=== PATIENT | female | born 1940 | race Caucasian/White ===

== ENCOUNTER → 2018-06-25 | Outpatient (CLI) | payer MEDICARE ==
[~2018-06-25] MED LIST: ALBUTEROL SULFATE 0.083% 2.5 MG/3 ML INH IH ONE
== END | disposition home or self-care (01) ==
LOC: RESP 08:29
PROVIDERS: ATTEND Internal Medicine
DX: J44.9 Chronic obstructive pulmonary disease, unspecified (principal); R06.00 Dyspnea, unspecified; M47.894 Other spondylosis, thoracic region
CPT/HCPCS: 71046; 94060; 94727; 94729

== ENCOUNTER 2023-01-01 23:58 | Observation (INO) | payer MEDICARE, OTHER ==
[~2023-01-01] VITALS: Ht 165.1 cm; Wt 53.5 kg
[~2023-01-01 23:58] MED LIST changes: +ALBU0.63 IH; +ALBU8.5H8 IH; -ALBUTEROL SULFATE 0.083% 2.5 MG/3 ML INH IH ONE; +AMLO-257 PO; +BUDE10.2 IH; +HYDR25TA PO; +LACT10SO5 PO; +METO50TA18 PO
[2023-01-02] VITALS: BP 118/56
[2023-01-02] MEDS ORDERED: ASPIRIN 81MG CHEW TAB PO ONE
[2023-01-02] MEDS ORDERED: IPRATROPIUM/ALBUTEROL SULFATE 3 ML SOLUTION IH ONE ×2 (00:30)
[2023-01-02] MEDS ORDERED: ACETAMINOPHEN 500 MG TABLET PO ONE (00:30)
[2023-01-02] MEDS ORDERED: SOLU-MEDROL 125MG VIAL IVP ONE (00:30)
[2023-01-02 00:41] LABS: BASOPHILS % (AUTO) 0.2 % (0.0-5.0); EOSINOPHILS % (AUTO) 0.7 % (0.0-8.0); HEMATOCRIT 41.9 % (36-48); LYMPHOCYTES % (AUTO) 4.4 % (21.0-51.0); MEAN CORPUSCULAR HEMOGLOBIN 30.7 pg (27.0-33.0); MEAN CORPUSCULAR HGB CONC 33.7 g/dL (32.0-36.0); MEAN CORPUSCULAR VOLUME 91.1 fL (79-99); MONOCYTES % (AUTO) 5.4 % (3.0-13.0); NEUTROPHILS % (AUTO) 88.9 % (40.0-77.0); PLATELET COUNT (AUTO) 324 K/uL (130-400); RED CELL DISTRIBUTION WIDTH 12.9 % (11.0-15.5); WHITE BLOOD COUNT (AUTO) 23.5 K/uL (4.8-10.8)
[2023-01-02 00:49] LABS: CREATININE 0.7 mg/dL (0.5-1.5); POTASSIUM 4.8 mmol/L (3.5-5.1)
[2023-01-02 00:54] LABS: ALBUMIN 3.7 g/dL (3.5-5.0); TOTAL PROTEIN, SERUM 7.8 g/dL (6.0-8.3)
[2023-01-02] MEDS ORDERED: PRED50TA2 PO (01:38)
[2023-01-02] MEDS ORDERED: LEVO750T68 PO (01:38)
[2023-01-02] MEDS ORDERED: LEVOFLOXACIN 750 MG TABLET PO ONE (02:00)
[2023-01-02] MEDS: SOLU-MEDROL 40MG VIAL IVP SCH ×3 (02:45→20:44)
[2023-01-02] MEDS ORDERED: ACETAMINOPHEN 325 MG TAB PO PRN ×2 (03:00→08:30)
[2023-01-02] MEDS ORDERED: ONDANSETRON 4MG INJ IVP PRN (03:00)
[2023-01-02] MEDS ORDERED: IPRATROPIUM/ALBUTEROL SULFATE 3 ML SOLUTION IH SCH (06:00)
[2023-01-02] MEDS ORDERED: MILK500C PO (07:49)
[2023-01-02] MEDS ORDERED: ALBU6.7H14 IH (07:49)
[2023-01-02] MEDS ORDERED: LEVO25TA54 PO (07:49)
[2023-01-02] MEDS ORDERED: AMLO-257 PO (07:49)
[2023-01-02] MEDS ORDERED: IPRA3AMP24 IH (07:49)
[2023-01-02] MEDS ORDERED: DIPHENHYDRAMINE HCL 25 MG CAPSULE PO PRN (08:30)
[2023-01-02] MEDS ORDERED: MAG/ALUM/SIMETH 30 ML UDCUP PO PRN (08:30)
[2023-01-02] MEDS ORDERED: LACTULOSE 20 GM/30 ML UDCUP PO PRN (08:30)
[2023-01-02] MEDS ORDERED: ALBUTEROL 0.083% 2.5 MG/3 ML INH IH PRN (08:30)
[2023-01-02] MEDS ORDERED: GUAIFENESIN-DM 200/20 MG 10 ML PO PRN (08:30)
[2023-01-02] MEDS: 0.9%NACL 1000ML 1,000 ML IV SCH (09:07)
[2023-01-02] MEDS: LEVOTHYROXINE 25 MCG TABLET PO SCH (09:07)
[2023-01-02] MEDS: ENOXAPARIN SODIUM 30 MG/0.3 ML SQ SCH (09:07)
[2023-01-02] MEDS: AZITHROMYCIN 250 MG TABLET PO SCH (09:07)
[2023-01-02] MEDS: IPRATROPIUM/ALBUTEROL SULFATE 3 ML SOLUTION IH SCH ×3 (09:48→18:29)
[2023-01-02] MEDS ORDERED: HYDROCODONE/ACETAMINOPHEN 5/325 MG TAB PO PRN (15:00)
[2023-01-02] MEDS ORDERED: PANTOPRAZOLE 40 MG TAB DR PO SCH (16:00)
[2023-01-02] MEDS: METOCLOPRAMIDE 5 MG TABLET PO SCH ×2 (16:51→20:44)
[2023-01-02] MEDS ORDERED: HYDR-4060 PO (20:10)
[2023-01-02 22:05] VITALS: BP 112/54
[2023-01-03] MEDS: 0.9%NACL 1000ML 1,000 ML IV SCH (00:29)
[2023-01-03] MEDS: SOLU-MEDROL 40MG VIAL IVP SCH (03:50)
[2023-01-03 04:00] VITALS: BP 157/73
[2023-01-03] MEDS: LEVOTHYROXINE 25 MCG TABLET PO SCH (06:25)
[2023-01-03] MEDS: METOCLOPRAMIDE 5 MG TABLET PO SCH ×3 (06:25→16:55)
[2023-01-03] MEDS: IPRATROPIUM/ALBUTEROL SULFATE 3 ML SOLUTION IH SCH ×3 (06:27→18:29)
[2023-01-03 07:27] VITALS: BP 126/45
[2023-01-03] MEDS ORDERED: PANT40TA54 PO (08:38)
[2023-01-03] MEDS ORDERED: AZIT500T PO (08:38)
[2023-01-03] MEDS ORDERED: PRED10TA3 PO (08:38)
[2023-01-03] MEDS ORDERED: DILTIAZEM 120MG SR CAP PO SCH (09:00)
[2023-01-03] MEDS ORDERED: PANTOPRAZOLE 40 MG TAB DR PO SCH (09:00)
[2023-01-03] MEDS ORDERED: PREDNISONE 10 MG TABLET PO SCH (09:00)
[2023-01-03] MEDS: AZITHROMYCIN 250 MG TABLET PO SCH (09:44)
[2023-01-03] MEDS: ENOXAPARIN SODIUM 30 MG/0.3 ML SQ SCH (09:46)
[2023-01-03 11:44] VITALS: BP 113/56
[2023-01-03] MEDS ORDERED: DILT120C78 PO (13:11)
[2023-01-03] MEDS ORDERED: OXYGEN NASAL (13:15)
[2023-01-03 16:01] VITALS: BP 118/56
== END 2023-01-03 20:38 | disposition home or self-care (01) ==
LOC: EDH 23:58 → EDHIP 01-02 02:15 → 4AH 01-02 22:05
PROVIDERS: ADMIT Internal Medicine; ATTEND Internal Medicine
DX: J44.1 Chronic obstructive pulmonary disease with (acute) exacerbation (principal); Z20.822 Contact with and (suspected) exposure to COVID-19; J96.01 Acute respiratory failure with hypoxia; I12.9 Hypertensive chronic kidney disease with stage 1 through stage 4 chronic kidney disease, or unspecified chronic kidney disease; N18.2 Chronic kidney disease, stage 2 (mild); E03.9 Hypothyroidism, unspecified; E88.81 Metabolic syndrome and other insulin resistance; I25.10 Atherosclerotic heart disease of native coronary artery without angina pectoris; J20.9 Acute bronchitis, unspecified; K31.84 Gastroparesis; M47.816 Spondylosis without myelopathy or radiculopathy, lumbar region; M81.0 Age-related osteoporosis without current pathological fracture; T40.2X5A Adverse effect of other opioids, initial encounter; Z79.51 Long term (current) use of inhaled steroids; Z79.899 Other long term (current) drug therapy; Z85.3 Personal history of malignant neoplasm of breast; Z85.828 Personal history of other malignant neoplasm of skin; Z87.891 Personal history of nicotine dependence; Z90.12 Acquired absence of left breast and nipple; Z90.710 Acquired absence of both cervix and uterus; Z96.641 Presence of right artificial hip joint; Z98.890 Other specified postprocedural states
CPT/HCPCS: 94640 ×8; 94760 ×2; 96374; 96376 ×2; 96372 ×2; 96361 ×2; 99285; 84484; 80053; 85025; 87040 ×2; 87804 ×2; 83605; 36415; 87635; 71045; 93005; G0378 ×35; C9803; J7030; J2930 ×2; J1650 ×2; J2920 ×4; J7512; 94664

== ENCOUNTER → 2023-10-17 | Outpatient (CLI) | payer MEDICARE, OTHER ==
[~2023-10-17] MED LIST changes: -ALBU0.63 IH; +ALBU6.7H14 IH; -ALBU8.5H8 IH; -AMLO-257 PO; +DILT180C89 PO; +DILT30 PO; +FURO40TA7 PO; -HYDR25TA PO; +IPRA3AMP24 IH; -LACT10SO5 PO; +LEVO-70 PO; +LEVO25TA54 PO; +LIDOCAINE HCL 4% LTA SOL 4 ML VIAL TP ONE; +LINE600T11 PO; -METO50TA18 PO; +PANT40GR PO; +POTA-202 PO; +PRED10TA3 PO; +ROSU5TAB12 PO
== END | disposition home or self-care (01) ==
LOC: WHH 08:22
PROVIDERS: ATTEND Nurse Practitioner Family
DX: T81.89XA Other complications of procedures, not elsewhere classified, initial encounter (principal); S81.801A Unspecified open wound, right lower leg, initial encounter; I13.0 Hypertensive heart and chronic kidney disease with heart failure and stage 1 through stage 4 chronic kidney disease, or unspecified chronic kidney disease; N18.9 Chronic kidney disease, unspecified; I50.9 Heart failure, unspecified; J44.9 Chronic obstructive pulmonary disease, unspecified; E78.5 Hyperlipidemia, unspecified; E03.9 Hypothyroidism, unspecified; I25.10 Atherosclerotic heart disease of native coronary artery without angina pectoris; M81.0 Age-related osteoporosis without current pathological fracture; M47.816 Spondylosis without myelopathy or radiculopathy, lumbar region; Z85.3 Personal history of malignant neoplasm of breast; Z87.891 Personal history of nicotine dependence; W22.8XXA Striking against or struck by other objects, initial encounter; Y93.89 Activity, other specified; Y99.8 Other external cause status; Y92.89 Other specified places as the place of occurrence of the external cause; Y83.8 Other surgical procedures as the cause of abnormal reaction of the patient, or of later complication, without mention of misadventure at the time of the procedure
CPT/HCPCS: 11042; A6250; A6196; A4450; A6260

== ENCOUNTER → 2023-10-31 | Outpatient (CLI) | payer MEDICARE, OTHER | END | disposition home or self-care (01) | LOC: WHH 08:08 | PROVIDERS: ATTEND Nurse Practitioner Family | DX: T81.89XD Other complications of procedures, not elsewhere classified, subsequent encounter (principal); S81.801D Unspecified open wound, right lower leg, subsequent encounter; I13.0 Hypertensive heart and chronic kidney disease with heart failure and stage 1 through stage 4 chronic kidney disease, or unspecified chronic kidney disease; N18.9 Chronic kidney disease, unspecified; I50.9 Heart failure, unspecified; J44.9 Chronic obstructive pulmonary disease, unspecified; E78.5 Hyperlipidemia, unspecified; E03.9 Hypothyroidism, unspecified; I25.10 Atherosclerotic heart disease of native coronary artery without angina pectoris; M81.0 Age-related osteoporosis without current pathological fracture; M47.816 Spondylosis without myelopathy or radiculopathy, lumbar region; Z85.3 Personal history of malignant neoplasm of breast; Z87.891 Personal history of nicotine dependence; Z79.899 Other long term (current) drug therapy; W22.8XXD Striking against or struck by other objects, subsequent encounter; Y83.8 Other surgical procedures as the cause of abnormal reaction of the patient, or of later complication, without mention of misadventure at the time of the procedure | CPT/HCPCS: 11042; A6197 ==

== ENCOUNTER → 2023-11-14 | Outpatient (CLI) | payer MEDICARE, OTHER | END | disposition home or self-care (01) | LOC: WHH 08:17 | PROVIDERS: ATTEND Nurse Practitioner Family | DX: T81.89XD Other complications of procedures, not elsewhere classified, subsequent encounter (principal); S81.801D Unspecified open wound, right lower leg, subsequent encounter; I13.0 Hypertensive heart and chronic kidney disease with heart failure and stage 1 through stage 4 chronic kidney disease, or unspecified chronic kidney disease; N18.9 Chronic kidney disease, unspecified; I50.32 Chronic diastolic (congestive) heart failure; J44.9 Chronic obstructive pulmonary disease, unspecified; E78.5 Hyperlipidemia, unspecified; E03.9 Hypothyroidism, unspecified; I25.10 Atherosclerotic heart disease of native coronary artery without angina pectoris; M81.0 Age-related osteoporosis without current pathological fracture; M47.816 Spondylosis without myelopathy or radiculopathy, lumbar region; Z85.3 Personal history of malignant neoplasm of breast; Z87.891 Personal history of nicotine dependence; Z79.899 Other long term (current) drug therapy; W22.8XXD Striking against or struck by other objects, subsequent encounter; Y83.8 Other surgical procedures as the cause of abnormal reaction of the patient, or of later complication, without mention of misadventure at the time of the procedure | CPT/HCPCS: 11042; A6250; A6209; A6197; A4450 ==

== ENCOUNTER → 2023-11-28 | Outpatient (CLI) | payer MEDICARE, OTHER | END | disposition home or self-care (01) | LOC: WHH 07:59 | PROVIDERS: ATTEND Nurse Practitioner Family | DX: T81.89XD Other complications of procedures, not elsewhere classified, subsequent encounter (principal); S81.801D Unspecified open wound, right lower leg, subsequent encounter; I13.0 Hypertensive heart and chronic kidney disease with heart failure and stage 1 through stage 4 chronic kidney disease, or unspecified chronic kidney disease; N18.9 Chronic kidney disease, unspecified; I50.32 Chronic diastolic (congestive) heart failure; J44.9 Chronic obstructive pulmonary disease, unspecified; E78.5 Hyperlipidemia, unspecified; E03.9 Hypothyroidism, unspecified; I25.10 Atherosclerotic heart disease of native coronary artery without angina pectoris; M81.0 Age-related osteoporosis without current pathological fracture; M47.816 Spondylosis without myelopathy or radiculopathy, lumbar region; Z85.3 Personal history of malignant neoplasm of breast; Z87.891 Personal history of nicotine dependence; Z79.899 Other long term (current) drug therapy; W22.8XXD Striking against or struck by other objects, subsequent encounter; Y83.8 Other surgical procedures as the cause of abnormal reaction of the patient, or of later complication, without mention of misadventure at the time of the procedure | CPT/HCPCS: G0463; A6250; A6196 ==

== ENCOUNTER → 2023-12-12 | Outpatient (CLI) | payer MEDICARE, OTHER ==
[~2023-12-12] MED LIST changes: -LIDOCAINE HCL 4% LTA SOL 4 ML VIAL TP ONE
== END | disposition home or self-care (01) ==
LOC: WHH 08:20
PROVIDERS: ATTEND Nurse Practitioner Family
DX: T81.89XD Other complications of procedures, not elsewhere classified, subsequent encounter (principal); S81.801D Unspecified open wound, right lower leg, subsequent encounter; L97.812 Non-pressure chronic ulcer of other part of right lower leg with fat layer exposed; I13.0 Hypertensive heart and chronic kidney disease with heart failure and stage 1 through stage 4 chronic kidney disease, or unspecified chronic kidney disease; N18.9 Chronic kidney disease, unspecified; I50.32 Chronic diastolic (congestive) heart failure; J44.9 Chronic obstructive pulmonary disease, unspecified; E78.5 Hyperlipidemia, unspecified; E03.9 Hypothyroidism, unspecified; I25.10 Atherosclerotic heart disease of native coronary artery without angina pectoris; M81.0 Age-related osteoporosis without current pathological fracture; M47.816 Spondylosis without myelopathy or radiculopathy, lumbar region; Z85.3 Personal history of malignant neoplasm of breast; Z87.891 Personal history of nicotine dependence; Z79.899 Other long term (current) drug therapy; W22.8XXD Striking against or struck by other objects, subsequent encounter; Y83.8 Other surgical procedures as the cause of abnormal reaction of the patient, or of later complication, without mention of misadventure at the time of the procedure
CPT/HCPCS: G0463

== ENCOUNTER → 2023-12-26 | Outpatient (CLI) | payer MEDICARE, OTHER | END | disposition home or self-care (01) | LOC: WHH 08:13 | PROVIDERS: ATTEND Nurse Practitioner Family | DX: T81.89XD Other complications of procedures, not elsewhere classified, subsequent encounter (principal); S81.801D Unspecified open wound, right lower leg, subsequent encounter; L97.812 Non-pressure chronic ulcer of other part of right lower leg with fat layer exposed; I13.0 Hypertensive heart and chronic kidney disease with heart failure and stage 1 through stage 4 chronic kidney disease, or unspecified chronic kidney disease; N18.9 Chronic kidney disease, unspecified; I50.32 Chronic diastolic (congestive) heart failure; J44.9 Chronic obstructive pulmonary disease, unspecified; E78.5 Hyperlipidemia, unspecified; E03.9 Hypothyroidism, unspecified; I25.10 Atherosclerotic heart disease of native coronary artery without angina pectoris; M81.0 Age-related osteoporosis without current pathological fracture; M47.816 Spondylosis without myelopathy or radiculopathy, lumbar region; Z85.3 Personal history of malignant neoplasm of breast; Z87.891 Personal history of nicotine dependence; Z79.899 Other long term (current) drug therapy; W22.8XXD Striking against or struck by other objects, subsequent encounter; Y83.8 Other surgical procedures as the cause of abnormal reaction of the patient, or of later complication, without mention of misadventure at the time of the procedure | CPT/HCPCS: G0463; A6250 ==

== ENCOUNTER 2024-03-28 16:28 | Emergency (ER) | payer MEDICARE, OTHER ==
[~2024-03-28] VITALS: Ht 162.6 cm; Wt 47.6 kg
[~2024-03-28 16:28] MED LIST changes: -ROSU5TAB12 PO; +ROSU5TAB43 PO
[2024-03-28 16:41] VITALS: BP 167/53; PULSE 70; RESP 17; O2SAT 96
== END 2024-03-28 18:49 | disposition admitted as inpatient to this hospital (09) ==
LOC: EDH 16:28
DX: S50.01XA Contusion of right elbow, initial encounter (principal); S50.11XA Contusion of right forearm, initial encounter; S80.01XA Contusion of right knee, initial encounter; S00.83XA Contusion of other part of head, initial encounter; I11.0 Hypertensive heart disease with heart failure; I50.9 Heart failure, unspecified; Z79.899 Other long term (current) drug therapy; Z90.710 Acquired absence of both cervix and uterus; Z90.89 Acquired absence of other organs; Z98.890 Other specified postprocedural states; W18.39XA Other fall on same level, initial encounter; Y93.89 Activity, other specified; Y92.89 Other specified places as the place of occurrence of the external cause; Y99.8 Other external cause status
CPT/HCPCS: 70450; 72125; 73080; 73090; 73130; 73562

== ENCOUNTER 2025-05-15 06:08 | Inpatient (IN) | payer MEDICARE, OTHER ==
[2025-05-15] VITALS (9 sets, daily range): BP systolic 105–152; BP diastolic 55–85; PULSE 92–131; RESP 16–24; TEMP 97.7–98; O2SAT 98
[~2025-05-15] VITALS: Ht 162.6 cm; Wt 47.2 kg
[~2025-05-15 06:08] MED LIST changes: -ROSU5TAB43 PO; +ROSU5TAB51 PO
--- NOTE | 2025-05-15 07:17 | ERN ---
General Chief Complaint: Constipation Stated Complaint: CONSTIPATION X 1 WEEK Time Seen by MD: 06:14 Source: patient History of Present Illness Initial Comments Patient is a an 85-year-old female coming in complaining of abdominal distention. Per patient this has been ongoing for a couple of days. She states he does have no history of abdominal surgery. Only other symptom is a dehydration states that she feels very thirsty no fever no chills. Allergies: Coded Allergies: No Known Drug Allergies (Unverified Allergy, Unknown, 08/19/18) Home Meds Active Scripts Linezolid (Zyvox) 600 Mg Tablet, 600 MG PO BID, #20 TAB 1 Refill Prov:ANASTACIO RAMIREZ MD 09/29/23 Levofloxacin (Levofloxacin) 500 Mg Tablet, 500 MG PO DAILY, #10 TAB Prov:ANASTACIO RAMIREZ MD 09/29/23 Prednisone (Prednisone) 10 Mg Tablet, 40 MG PO DAILYBKFST, #50 TAB 0 Refills 4 TABS DAILY X 5 DAYS 3 TABS DAILY X 5 DAYS 2 TABS DALIY X 5 DAYS 1 TAB DAILY X 5 DAYS THEN STOP TAKE WITH FOOD IN AM Prov:ANASTACIO RAMIREZ MD 09/29/23 Pantoprazole Sodium (Pantoprazole Sodium) 40 Mg Granpkt.dr, 40 MG PO BID, #60 PACK 1 Refill Prov:ANASTACIO RAMIREZ MD 09/29/23 Potassium Chloride (Potassium Chloride) 20 Meq Tab.er.prt, 20 MEQ PO BID, #60 TAB 1 Refill Prov:ANASTACIO RAMIREZ MD 09/29/23 Furosemide (Lasix 40Mg Tab) 40 Mg Tablet, 40 MG PO BID, #60 TAB 1 Refill Prov:ANASTACIO RAMIREZ MD 09/29/23 Diltiazem HCl (Diltiazem HCl 30 mg Tab) 30 Mg Tab, 30 MG PO DAILYLUNCH, #90 TAB Prov:ANASTACIO RAMIREZ MD 09/24/23 Diltiazem HCl (Diltiazem 24Hr ER) 180 Mg Cap.er.24h, 180 MG PO BID, #[address]SU[address] Prov:ANASTACIO RAMIREZ MD 09/24/23 Rosuvastatin Calcium (Rosuvastatin Calcium) 5 Mg Tablet, 5 MG PO HS, #90 TAB Prov:ANASTACIO RAMIREZ MD 09/24/23 Ipratropium/Albuterol Sulfate (Iprat-Albut 0.5-3(2.5) mg/3 ml) 3 Ml Ampul.neb, 3 ML IH [id number], #90 DAYS Prov:ANASTACIO RAMIREZ MD 01/02/23 Levothyroxine Sodium (Levothyroxine Sodium) 25 Mcg Tablet, 25 MCG PO DAILY, #90 TAB Prov:ANASTACIO RAMIREZ MD 01/02/23 Albuterol Sulfate (Proventil Hfa) 6.7 Gm Hfa.aer.ad, 2 PUFF IH Q4PRN PRN for SHORTNESS OF BREATH/WHEEZING, #7 INHALER Prov:ANASTACIO RAMIREZ MD 01/02/23 Reported Medications Budesonide/Formoterol Fumarate (Symbicort 160-4.5 Mcg Inhaler) 10.2 Gm Hfa.aer.ad, 2 PUFF IH BID 08/19/18 Past Medical History Past Medical History: CHF, COPD, Hypertension Medical History Other: "LUNG DAMAGE" FORMER SMOKER. Past Surgical History: Hysterectomy, Tonsillectomy, Other Surgical History Other: L MASTECTOMY, R LUMPECTOMY Social History Social History: Negative Female( History) History: Not Applicable ROS Dictation CONSTITUTIONAL: No chills, no fever, no weakness, no diaphoresis, no malaise. HEAD/FACE: No signs of trauma. EENT: No eye pain, no blurred vision, no tearing, no double vision, no ear pain, no ear discharge, no nose pain, no nasal congestion, no throat pain, no throat swelling, no mouth pain. RESPIRATORY: No cough, no orthopnea, no SOB, no stridor, no wheezing. CARDIOVASCULAR: No chest pain, no edema, no palpitations, no syncope. GASTROINTESTINAL/ABDOMINAL: abdominal pain, constipation, no diarrhea, nausea, vomiting. GENITOURINARY: No abnormal discharge, no dysuria, no frequent urination, no hematuria. No complaints of pain in the genitals. MUSCULOSKELETAL: No back pain, no gout, no joint pain, no joint swelling, no muscle pain, no muscle stiffness, no neck pain. INTEGUMENTARY: No change in color, no change in hair/nails, no dryness, no lesion, no lumps, no rash. NEUROLOGICAL/PSYCH: No anxiety, not depressed, no emotional problem, no headache, no numbness, no pre-existing deficit, no history of seizures, no tremors, no weakness. HEMATOLOGIC/LYMPHATIC: Not anemic, no history of blood clots, no apparent blee ding, no bruising, glands not swollen. All Systems Negative, Except as Noted. Physical Exam Physical Exam Dictation VITAL SIGNS: Reviewed. GENERAL APPEARANCE: Alert, oriented x3, no acute distress, obese. HEAD AND FACE: Non-traumatic. EYES: PERRL, pink conjunctivas, eyelid no trauma, anterior chamber clear. EARS: Pinnas intact and no signs of trauma or erythema. Ear canals clear and no discharge. TMs no erythema. NOSE: No discharge, no bleeding. OROPHARYNX: Mouth normal, teeth no caries, tongue pink. Pharynx clear, no erythema. Tonsils no exudates, no abscesses noted. Mucous membrane moist. NECK: Supple, non-tender, no thyromegaly, no masses, no JVD, no bruits. BREAST: Deferred. CHEST: No tenderness, no crepitus, no paradoxical movement, no retractions. LUNGS: Clear, well-ventilated, symmetric, no rales, no wheezing, no rhonchi, no stridor, good breath sounds bilaterally. HEART: Regular rate, regular rhythm, no murmur, no gallops. VASCULAR: No peripheral edema. ABDOMEN: Soft, positive bowel sounds, distended, no guarding, nontender, no rebound, no masses no hepatomegaly, no splenomegaly, no Mckeon's sign, no hernias. RECTAL: Deferred. GENITAL: Deferred. NEUROLOGICAL: Normal speech, gross motor function intact, gross sensory function intact. MUSCULOSKELETAL: Neck nontender, full range of motion, back nontender, full range of motion. EXTREMITIES: Nontender, full range of motion. SKIN: Color pink, dry, no turgor, no rash, no lacerations, no abrasions, no contusions. LYMPHATICS: Deferred. Results Laboratory and Microbiology Lab and Micro Result Laboratory Tests Test 05/15/25 06:56 White Blood Count 21.7 K/uL (4.8-10.8) H Red Blood Count 4.45 MIL/uL (4.00-5.50) Hemoglobin 13.2 g/dL (12.0-16.0) Hematocrit 38.4 % (36-48) Mean Corpuscular Volume 86.3 fL (79-99) Mean Corpuscular Hemoglobin 29.7 pg (27.0-33.0) Mean Corpuscular Hemoglobin Concent 34.4 g/dL (32.0-36.0) Red Cell Distribution Width 12.9 % (11.0-15.5) Platelet Count 371 K/uL (130-400) Mean Platelet Volume 9.7 fL (7.5-10.5) Immature Granulocyte % (Auto) 0.5 % (0-1) Neutrophils (%) (Auto) 87.7 % (40.0-77.0) H Lymphocytes (%) (Auto) 3.5 % (21.0-51.0) L Monocytes (%) (Auto) 8.2 % (3.0-13.0) Eosinophils (%) (Auto) 0.0 % (0.0-8.0) Basophils (%) (Auto) 0.1 % (0.0-5.0) Neutrophils # (Auto) 19.0 K/uL (1.8-7.7) H Lymphocytes # (Auto) 0.8 K/uL (1.0-4.8) L Monocytes # (Auto) 1.8 K/uL (0.1-1.0) H Eosinophils # (Auto) 0.00 K/uL (0.00-0.70) Basophils # (Auto) 0.03 K/uL (0.00-0.20) Absolute Immature Granulocyte (auto 0.11 K/uL (0-1) Nucleated Red Blood Cells 0.0 % (0.0-0.19) White Cell Morphology Comment See comments Sodium Level 133 mmol/L (136-145) L Potassium Level 3.8 mmol/L (3.5-5.1) Chloride Level 93 mmol/L (101-111) L Carbon Dioxide Level 29 mmol/L (21-32) Blood Urea Nitrogen 46 mg/dL (7-18) H Creatinine 0.9 mg/dL (0.5-1.0) Glomerular Filtration Rate Calc 63 mL/min (>90) Random Glucose 146 mg/dL (70-105) H Total Calcium 9.7 mg/dL (8.5-10.1) Troponin I High Sensitivity 22 ng/L (4-50) B-Type Natriuretic Peptide 97 pg/mL (0-100) Lipase 16 U/L (16-77) Labs Reviewed?: Yes MDM MDM: Differential diagnosis: Abdominal distention, constipation, ileus, large bowel obstruction, sepsis, Rationale: Tests considered and ordered secondary to shared decision making include: Previous outside records reviewed: Old ER visits. Risk of complication and/or morbidity or mortality of patient management: None Medications-Per medication reconciliation Need for hospitalization: Patient does meet criteria for hospitalization. Need for emergency major/minor surgery: No There are no social concerns with this patient. Prescription drug management Prescriptions will include symptomatic care Patient's prior external medical records from other ER visits were reviewed by me as indicated. Prior testing and results from previous visits were reviewed. Prior tests were taken into account with medical decision making and resource utilization, independent historian/historians were used to obtain complete medical history. I independently interpreted the test that were performed, results were reviewed by me and considered findings on radiology if ordered. Medical management and examination interpretation discussions were had by me with other qualified healthcare professionals as indicated for the patient's care. Patient is a an 85-year-old female coming in complaining of abdominal distention. She CT shows an ileus possible large bowel obstruction with the constipation. Patient will be admitted under the care of Dr. Ramirez for ongoing management. ED Course Orders Procedure Category Date Status Time Cbc With Differential LAB 05/15/25 Complete 06:37 Basic Metabolic Panel LAB 05/15/25 Complete 06:37 Lipase LAB 05/15/25 Complete 06:37 Troponin I High LAB 05/15/25 Complete Sensitivity 06:37 12 Lead Ekg Tracing- EKG 05/15/25 Complete Technical 06:37 Ct Abdomen/Pelvis W/O CT 05/15/25 Resulted Contrast 07:16 B-Type Natriuretic LAB 05/15/25 Complete Peptide 06:56 Urinalysis LAB 05/15/25 Logged W/Microscopic 08:24 Lactic Acid LAB 05/15/25 Logged 08:24 Blood Cult DIANDRA 05/15/25 Logged 08:24 Hepatic Function Panel LAB 05/15/25 Logged 08:25 Ceftriaxone 1g Vial PHA 05/15/25 Logged (Rocephine 1g Inj) 09:00 Current Medications Medications (Trade) Dose Ordered Sig/Margo Route PRN Reason Start Time Stop Time Status Last Admin Dose Admin Ceftriaxone Sodium (ROCEphine 1G INJ) 1 gm ONCE ONCE IVPB 05/15/25 09:00 05/15/25 09:01 UNV Vital Signs Date Time Temp Pulse Resp B/P (MAP) Pulse Ox O2 Delivery O2 Flow Rate FiO2 05/15/25 08:41 98.2 107 16 192/94 100 Nasal Cannula* 3 32 05/15/25 06:49 98.2 116 18 175/85 98 Room Air* 0 21 05/15/25 06:09 99.1 126 18 178/76 99 Nasal Cannula 3.0 DX & DISP Disposition: Inpatient Decision to Admit Time: 08:45 Departure Impression: Primary Impression: Sepsis Additional Impressions: Ileus, Large bowel obstruction, Constipation Condition: Stable Referrals: ANASTACIO RAMIREZ MD (PCP) JOANNE GARCIA MD May 15, 2025 07:17
[2025-05-15 07:25] LABS: IMMATURE GRANULOCYTE ABSOLUTE 0.11 K/uL (0-1); NUCLEATED RED BLOOD CELLS 0.0 % (0.0-0.19); PLATELET COUNT (AUTO) 371 K/uL (130-400); RED BLOOD CELL COUNT(AUTO) 4.45 MIL/uL (4.00-5.50); RED CELL DISTRIBUTION WIDTH 12.9 % (11.0-15.5); WHITE BLOOD COUNT (AUTO) 21.7 K/uL (4.8-10.8)
--- NOTE | 2025-05-15 07:31 | EKG ---
[facility] Test Date: 2025-05-15 Test Time: 06:49:13 Pat Name: ENEIDA ANSARI Department: ED Room: 420 Gender: F Final Inspector Movement Assembly: [id number] : 1940 Requested By: WANDA DEWEY Order Number: [id number] Reading MD: Sung Benavidez Measurements Intervals [place] Rate: 95 P: 82 CA: 167 QRS: -32 QRSD: 88 T: 67 QT: 330 QTc: 416 Interpretive Statements Sinus rhythm Supraventricular bigeminy Probable left atrial enlargement Left ventricular hypertrophy Compared to ECG 09/23/2023 15:09:23 Atrial premature complex(es) now present Left ventricular hypertrophy now present Electronically Signed On 05-15-2025 16:39:08 CDT by Sung Benavidez Please click the below link to view image of tracing.
[2025-05-15 07:35] LABS: CREATININE 0.9 mg/dL (0.5-1.0); GLOMERULAR FILTR. RATE CALC 63.0 mL/min (>90); GLUCOSE,RANDOM 146.0 mg/dL (70-105); SODIUM SERUM 133.0 mmol/L (136-145); UREA NITROGEN, BLOOD 46.0 mg/dL (7-18)
--- NOTE | 2025-05-15 08:37 | HMCIMG ---
EXAM: CT Abdomen and Pelvis Without IV contrast CLINICAL HISTORY: Abdominal distension. TECHNIQUE: Axial computed tomography images of the abdomen and pelvis without intravenous contrast. COMPARISON: None provided. FINDINGS: LUNG BASES: The lung bases appear clear. No pleural effusions are seen. LIVER: Unremarkable. GALLBLADDER AND BILE DUCTS: The gallbladder appears within normal limits. No radioopaque gallstones are seen. No biliary ductal dilatation is evident. PANCREAS: Appears atrophic with dilated main pancreatic duct (measuring 5 mm) with diffuse intraparenchymal calcifications. SPLEEN: Unremarkable. ADRENAL GLANDS: Unremarkable. KIDNEYS, URETERS, AND BLADDER: Left renal cortical cyst measuring 2 x 2 cm in the interpolar region of left kidney. Right renal cortical cyst measuring 1.6 x 1.6 cm in the lower pole of right kidney. There is no hydronephrosis or hydroureter. No urinary calculi are seen. STOMACH AND BOWEL: Severe dilatation of the cecum, ascending colon, transverse colon and descending colon with gradual tapering at the sigmoid colon distended with fecal matter. PERITONEUM: Mild to moderate ascites . No free air. LYMPH NODES: No lymphadenopathy is evident. REPRODUCTIVE: Post hysterectomy status. VASCULATURE: No evidence of abdominal aortic aneurysm. Atherosclerotic intimal wall calcifications present involving abdominal aorta and its branches. BONES: No aggressive appearing osseous lesion. No acute osseous pathology evident. Scoliosis of the lumbar spine with convexity toward right. Moderate to severe lumbar spondylosis. Post-right total hip arthroplasty status. IMPRESSION: Severe dilatation of the cecum, ascending colon, transverse colon and descending colon with gradual tapering at the sigmoid colon, distended with fecal matter. Consistent with large bowel ileus versus distal obstruction. Suggested clinical correlation. Chronic calcific pancreatitis. Mild to moderate ascites. Bilateral renal cortical cysts. /[place]
[2025-05-15] MEDS: 0.9%NACL 1000ML 1,000 ML IV SCH (09:34)
[2025-05-15] MEDS: ENOXAPARIN SODIUM 30 MG/0.3 ML SQ SCH (09:34)
[2025-05-15 09:43] LABS: ASPARTATE AMINOTRANSFERASE 17.0 U/L (10-37); TOTAL PROTEIN, SERUM 6.5 g/dL (6.0-8.3)
[2025-05-15] MEDS: ALBUTEROL 0.042% 1.25MG/3ML IH PRN (10:00)
[2025-05-15 11:12] LABS: APPEARANCE,URINE CLEAR (CLEAR); GLUCOSE, URINE (UA) NEGATIVE (NEGATIVE); LEUKOCYTE ESTERASE ,URINE NEGATIVE Leu/uL (NEGATIVE); NITRATE,URINE NEGATIVE (NEGATIVE); OCCULT BLOOD,URINE NEGATIVE (NEGATIVE); SQUAMOUS EPITHELIAL CELL,UR MOD /HPF (0-2)
[2025-05-15] MEDS ORDERED: CLOP75TA32 PO (11:28)
[2025-05-15] MEDS ORDERED: ASPI-1443 PO (11:31)
[2025-05-15] MEDS ORDERED: ATOR40TA71 PO (11:31)
[2025-05-15] MEDS ORDERED: DILT120T PO (11:31)
[2025-05-15] MEDS ORDERED: BUDE10.7 IH (11:31)
--- NOTE | 2025-05-15 11:36 | NUR ---
REPORT GIVEN TO JAMIN UREÑA AT 1130 PT AAOX3 STABLE NO DISTRESS, NG TUBE INTACT, FAMILY AT BESIDE WITH PERSONAL BELONGINGS.
--- NOTE | 2025-05-15 15:59 | NUR ---
PATIENT IN UNIT PATIENT ARRIVED TO UNIT AT 1150. VITALS CHECKED 105/55, 130 MD, 98% 3L NC, 18 RR. DAUGHTER MIGUEL ANGEL WAS WITH PATIENT BEDSIDE. PATIENT KEPT ASKING FOR WATER AND ICE. I INFORMED HER SHE WAS NPO AND COULDN'T HAVE ANY. PATIENT COMPLAINED THAT HER THROAT WAS HURTING FROM THE NG TUBE AND WAS FEELING NAUSEOUS. I INFORMED DR. ABRAMS ABOUT IT AND SHE ORDERED ZOFRAN 4 MG IV Q6 PRN N/V, CETACAINE SPRAY FOR THROAT PAIN. DIRECTIONS ARE TO DO 2 SPRAYS IN BACK OF THROAT. THE ORDER IS UNDER BENZOCAINE HURRICANE/TOPEX 20% SPRAY.
[2025-05-15] MEDS ORDERED: MAGNESIUM 2GM PREMIX 50ML 50 ML IV PRN (17:30)
[2025-05-15] MEDS ORDERED: MAG/ALUM/SIMETH 30 ML UDCUP PO PRN (17:30)
[2025-05-15] MEDS ORDERED: DEXTROSE 50%-WATER 50 ML DISP.SYRIN IV PRN (17:30)
[2025-05-15] MEDS ORDERED: PoTASSium chloRIDE 20MEQ ER 20 MEQ ERTAB PO PRN (17:30)
[2025-05-15] MEDS ORDERED: GLUCAGON 1MG KIT 1 MG ML IM PRN (17:30)
--- NOTE | 2025-05-15 17:32 | HP ---
HISTORY AND PHYSICAL Date of Visit: May 15, 2025 Time of Visit: 17:32 ADMISSION DATE: May 15, 2025 at 08:48 CC: ABDOMINAL PAIN HPI: THIS IS A 85 YR OLD WOMAN WITH HISTORY OF SEVERE COPD ON HOME OXYGEN THERAPY, A-FIB AND CHRONIC PAIN FROM LUMBAR STENOSIS. SHE HAS BEEN HAVING PROBLEMS WITH CONSTIPATION FOR THE PAST WEEK WITHOUT RELIEF DESPITE MULTIPLE EFFORTS. SHE HAS BEEN USING OTC LAXATIVES WITH DULCOLAX AND COLACE WHICH DID NOT HELP AND THEN SHE WAS PRESCRIBED LACTULOSE BUT HAD STILL HAD A BOWEL MOVEMENT. SHE REPORTS HER ABDOMEN GOT VERY DISTENDED AND TENSE WITH WORSENING BILATERAL LOWER ABDOMINAL PAIN AND ASSOCIATED WITH NAUSEA AND VOMITING THAT PROMPTED HER TO GO TO THE ER FOR EVALUATION. SHE DENIED ANY FEVERS OR CHILLS, CHEST PAINS, INCREASED SOB OR PALPITATIONS. SHE RECENTLY FILLED OUT AN OUT OF HOSPITAL DNR IN OUR OFFICE AND REPORTS SHE WANTS TO CONTINUE CURRENT CODES STATUS AND PREFERS CONSERVATIVE MEASURES DUE TO HER AGE AND COMORBIDITIES. 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 WITH A RIGHT TOTAL HIP ARTHROPLASTY - 08/2018 SOCIAL HISTORY: [] FAMILY HISTORY: [] Patient History: Carcinomas MOTHER Cardiovascular disease FATHER Hypertension FATHER Allergies: Coded Allergies: No Known Drug Allergies (Unverified Allergy, Unknown, 08/19/18) Scheduled Aspirin (Aspirin EC), 81 MG PO DAILY, (Reported) Atorvastatin Calcium (Atorvastatin Calcium), 40 MG PO DAILY, (Reported) Budesonide/Glycopyr/Formoterol (Breztri Aerosphere Inhaler), 2 PUFF IH BID, (Reported) Clopidogrel Bisulfate (Clopidogrel), 75 MG PO DAILY, (Reported) Diltiazem HCl (Diltiazem HCl), 150 MG PO BID, (Reported) Ipratropium/Albuterol Sulfate (Iprat-Albut 0.5-3(2.5) mg/3 ml), 3 ML IH [id number] Levothyroxine Sodium (Levothyroxine Sodium), 25 MCG PO DAILY Scheduled PRN Albuterol Sulfate (Proventil Hfa), 2 PUFF IH Q4PRN PRN for SHORTNESS OF BREATH/WHEEZING Discontinued Medications Budesonide/Formoterol Fumarate (Symbicort 160-4.5 Mcg Inhaler), 2 PUFF IH BID, (Reported) Diltiazem HCl (Diltiazem 24Hr ER), 180 MG PO BID Diltiazem HCl (Diltiazem HCl 30 mg Tab), 30 MG PO DAILYLUNCH Furosemide (Lasix 40Mg Tab), 40 MG PO BID Levofloxacin (Levofloxacin), 500 MG PO DAILY Linezolid (Zyvox), 600 MG PO BID Pantoprazole Sodium (Pantoprazole Sodium), 40 MG PO BID Potassium Chloride (Potassium Chloride), 20 MEQ PO BID Prednisone (Prednisone), 40 MG PO DAILYBKFST Rosuvastatin Calcium (Rosuvastatin Calcium), 5 MG PO HS Review of Systems Normal Constitutional:, Normal Eyes:, Normal Ear/Nose/Mouth/Throat, Normal Ca rdiovascular:, Normal Gastrointestinal:, Normal Genitourinary:, Normal Integumentary:, Normal Musculoskeletal:, Normal Neurological:, Normal Psychological:, Normal Endocrine:, Normal Hematologic/Lymphatic:, Normal Allergic/Immunologic:; Abnormal Respiratory: (ABDOMINAL PAIN BILATERAL LOWER QUADRANTS AND N/V ) Physical Exam Vital Signs Vital Signs Date Time Temp Pulse Resp B/P (MAP) Pulse Ox O2 Delivery O2 Flow Rate FiO2 05/15/25 06:09 99.1 126 18 178/76 99 Nasal Cannula 3.0 05/15/25 06:49 21 Appearance: Other (ELDERLY AND FRAIL) Eyes: Clear, PERRL, EOM Normal Ear/Nose/Mouth/Throat: Landmarks WNL, Abnormal (DRY ORAL) Neck: Symmetric, trach midline, Thyroid WNL Cardiovascular: No Edema, Abnormal (MILD TACHYCARDIA ) Respiratory: No Retractions, Abnormal (VERY DISTANT BS BILATERALLY) G.I.: No rebound tenderness, Abnormal (ABDOMEN DISTENDED AND DECREASED BOWEL SOUNDS) Lymphatic: No lymphadenopathy neck, No lymphadenopathy axilla, No lymphadenopathy groin Musculoskeletal: Abnormal (GENERALIZED WEAKNESS) Skin: No rash/ulcers Neurology: Sensation WNL Psychology: Insight WNL, Orientation WNL, Memory WNL Diagnostics Laboratory Tests Test 05/15/25 06:56 05/15/25 09:03 05/15/25 10:56 Range/Units White Blood Count 21.7 4.8-10.8 K/uL Red Blood Count 4.45 4.00-5.50 MIL/uL Hemoglobin 13.2 12.0-16.0 g/dL Hematocrit 38.4 36-48 % Mean Corpuscular Volume 86.3 79-99 fL Mean Corpuscular Hemoglobin 29.7 27.0-33.0 pg Mean Corpuscular Hemoglobin Concent 34.4 32.0-36.0 g/dL Red Cell Distribution Width 12.9 11.0-15.5 % Platelet Count 371 130-400 K/uL Mean Platelet Volume 9.7 7.5-10.5 fL Immature Granulocyte % (Auto) 0.5 0-1 % Neutrophils (%) (Auto) 87.7 40.0-77.0 % Lymphocytes (%) (Auto) 3.5 21.0-51.0 % Monocytes (%) (Auto) 8.2 3.0-13.0 % Eosinophils (%) (Auto) 0.0 0.0-8.0 % Basophils (%) (Auto) 0.1 0.0-5.0 % Neutrophils # (Auto) 19.0 1.8-7.7 K/uL Lymphocytes # (Auto) 0.8 1.0-4.8 K/uL Monocytes # (Auto) 1.8 0.1-1.0 K/uL Eosinophils # (Auto) 0.00 0.00-0.70 K/uL Basophils # (Auto) 0.03 0.00-0.20 K/uL Absolute Immature Granulocyte (auto 0.11 0-1 K/uL Nucleated Red Blood Cells 0.0 0.0-0.19 % White Cell Morphology Comment See comments Sodium Level 133 136-145 mmol/L Potassium Level 3.8 3.5-5.1 mmol/L Chloride Level 93 101-111 mmol/L Carbon Dioxide Level 29 21-32 mmol/L Blood Urea Nitrogen 46 7-18 mg/dL Creatinine 0.9 0.5-1.0 mg/dL Glomerular Filtration Rate Calc 63 >90 mL/min Random Glucose 146 70-105 mg/dL Total Calcium 9.7 8.5-10.1 mg/dL Troponin I High Sensitivity 22 4-50 ng/L B-Type Natriuretic Peptide 97 0-100 pg/mL Lipase 16 16-77 U/L Lactic Acid Level 1.7 0.8-2.5 mmol/L Total Bilirubin 0.6 0.2-1.0 mg/dL Direct Bilirubin 0.1 0.0-0.3 mg/dL Aspartate Amino Transf (AST/SGOT) 17 10-37 U/L Alanine Aminotransferase (ALT/SGPT) 9 12-78 U/L Alkaline Phosphatase 108 50-136 U/L Total Protein 6.5 6.0-8.3 g/dL Albumin 3.3 3.5-5.0 g/dL Urine Color YELLOW YELLOW Urine Appearance CLEAR CLEAR Urine pH 6.0 5.0-8.0 Urine Specific [place] 1.024 1.001-1.031 Urine Protein 70 NEGATIVE mg/dL Urine Glucose (UA) NEGATIVE NEGATIVE mg/dL Urine Ketones 20 NEGATIVE mg/dL Urine Occult Blood NEGATIVE NEGATIVE Urine Nitrate NEGATIVE NEGATIVE Urine Bilirubin 0.5 NEGATIVE mg/dL Urine Urobilinogen 0.2 0.2-1.0 mg/dL Urine Leukocyte Esterase NEGATIVE NEGATIVE [place]/uL Urine RBC 0-1 0-1 /HPF Urine WBC 0-1 0-1 /HPF Urine Squamous Epithelial Cells MOD 0-2 /HPF Urine Bacteria RARE None Seen /HPF Assessment/Plan Assessment/Plan ABD PEL WO - CT ABDOMEN/PELVIS W/O CONTRAST FINDINGS: LUNG BASES: The lung bases appear clear. No pleural effusions are seen. LIVER: Unremarkable. GALLBLADDER AND BILE DUCTS: The gallbladder appears within normal limits. No radioopaque gallstones are seen. No biliary ductal dilatation is evident. PANCREAS: Appears atrophic with dilated main pancreatic duct (measuring 5 mm) with diffuse intraparenchymal calcifications. SPLEEN: Unremarkable. ADRENAL GLANDS: Unremarkable. KIDNEYS, URETERS, AND BLADDER: Left renal cortical cyst measuring 2 x 2 cm in the interpolar region of left kidney. Right renal cortical cyst measuring 1.6 x 1.6 cm in the lower pole of right kidney. There is no hydronephrosis or hydroureter. No urinary calculi are seen. STOMACH AND BOWEL: Severe dilatation of the cecum, ascending colon, transverse colon and descending colon with gradual tapering at the sigmoid colon distended with fecal matter. PERITONEUM: Mild to moderate ascites . No free air. LYMPH NODES: No lymphadenopathy is evident. REPRODUCTIVE: Post hysterectomy status. VASCULATURE: No evidence of abdominal aortic aneurysm. Atherosclerotic intimal wall calcifications present involving abdominal aorta and its branches. BONES: No aggressive appearing osseous lesion. No acute osseous pathology evident. Scoliosis of the lumbar spine with convexity toward right. Moderate to severe lumbar spondylosis. Post-right total hip arthroplasty status. IMPRESSION: Severe dilatation of the cecum, ascending colon, transverse colon and descending colon with gradual tapering at the sigmoid colon, distended with fecal matter. Consistent with large bowel ileus versus distal obstruction. Suggested clinical correlation. Chronic calcific pancreatitis. Mild to moderate ascites. Bilateral renal cortical cysts. 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 WITH A RIGHT TOTAL HIP ARTHROPLASTY - 08/2018 SHE PRESENTED WITH AN ACUTE BOWEL OBSTRUCTION FECAL IMPACTION PLAN: KEEP NPO WITH NG TO LIS IVF HYDRATION AND MONITOR FOR ANY CHF IV ANALGESICS AND ANTI EMETICS PRN IV ANTI HYPERTENSIVES AND IV MEDS TO CONTINUE HR CONTROL MONITOR AND SUPPLEMENT ELECTROLYTES AND MAGNESIUM PRN CONTINUE O2 PER NC AND ADJUST NEEDED CONT SCHEDULED NEBS AND PRN NEBS IN BETWEEN NEEDED EMPIRIC IV ANTIBIOTICS IV PEPCID FOR STRESS ULCER PROPHYLAXIS LOVENOX FOR DVT PROPHYLAXIS CODE STATUS TO CONTINUE DNR/DNI PER PT REQUEST CONTINUE GNS CONSULTATION PROGNOSIS GUARDED AND PATIENT WELL AWARE AND REQUESTS CONSERVATIVE MEASURES ANSWERED ALL QUESTIONS AT BEDSIDE FOR PATIENT ANASTACIO ABRAMS MD May 15, 2025 17:32
--- NOTE | 2025-05-15 19:44 | NUR ---
BLADDER SCAN 30 ML SHOWN IN SCAN. PATIENT DIDN'T COMPLAIN OF PAIN OR DISCOMFORT DURING THAT TIME.
[2025-05-15] MEDS: BENZOCAINE 20% 57 GM SPRAY TP PRN (21:18)
--- NOTE | 2025-05-15 21:30 | NUR ---
CALLED REGARDING PATIENTS TACHYCARDIA AND NO CARDIAC MONITORING, REQUESTED PRN MEDICATION. OBTAINED VERBAL ORDER AND READ BACK FOR CHANGE TO MED SURG TELE AND LABETALOL PRN FOR HR >110. ORDER NOTED AND CARRIED OUT. PLAN OF CARE DISCUSSED WITH PATIENT, PATIENT VOICED UNDERSTANDING.
[2025-05-16] VITALS (17 sets, daily range): BP systolic 134–177; BP diastolic 50–96; PULSE 74–135; RESP 17–24; TEMP 97.4–98.4; O2SAT 96–100
[2025-05-16 04:00] LABS: NUCLEATED RED BLOOD CELLS 0.0 % (0.0-0.19); PLATELET COUNT (AUTO) 377.0 K/uL (130-400); RED BLOOD CELL COUNT(AUTO) 3.94 MIL/uL (4.00-5.50); RED CELL DISTRIBUTION WIDTH 13.2 % (11.0-15.5); WHITE BLOOD COUNT (AUTO) 19.9 K/uL (4.8-10.8)
[2025-05-16 04:10] LABS: CREATININE 0.9 mg/dL (0.5-1.0); GLOMERULAR FILTR. RATE CALC 63.0 mL/min (>90); GLUCOSE,RANDOM 137.0 mg/dL (70-105); SODIUM SERUM 135.0 mmol/L (136-145); UREA NITROGEN, BLOOD 49.0 mg/dL (7-18)
[2025-05-16] MEDS: PoTASSium chl 10% ELIXIR 20MEQ 20 MEQ/15 ML UDCUP PO PRN (05:54)
[2025-05-16] MEDS: FAMOTIDINE 20MG VIAL IV SCH (09:00)
[2025-05-16] MEDS ORDERED: BENZOCAINE 20% 57 GM SPRAY TP PRN (10:30)
[2025-05-16] MEDS ORDERED: BENZOCAINE 20% 57 GM SPRAY TP SCH (10:30)
[2025-05-16] MEDS ORDERED: ZOSYN 3.375GM +NS 50ML IV SCH (10:30)
[2025-05-16] MEDS: BENZOCAINE 20% 57 GM SPRAY TP SCH (13:03)
[2025-05-16] MEDS: ZOSYN 3.375GM +NS 50ML IV SCH (13:06)
--- NOTE | 2025-05-16 13:20 | PN ---
Subjective Review of Systems PROGRESS NOTE Date of Visit: May 16, 2025 Time of Visit: 13:15 Events since last encounter ABDOMINAL PAIN HAS IMPROVED BUT PERSISTS BUT TO A LOWER DEGREE HAS SOME NAUSEA BUT NO VOMITING WITH NG TO LIS Subjective PATIENT VERY ANXIOUS AND DAUGHTER AT BEDSIDE C/O MOUTH DRYNESZ General: No Fever, No Chills, No Night Sweats, No Fatigue, No Malaise, No Appetite, No Other HEENT: No Head Aches, No Visual Changes, No Eye Pain, No Ear Pain, No Dyspha dahlia, No Sinus Congestion, No Post Nasal Drip, No Sore Throat, No Other Pulmonary: No Dyspnea, No Cough, No Pleuritic Chest Pain, No Other Cardiovascular: No: Chest Pain, Palpitations, Orthopnea, Paroxysmal Noc. D yspnea, Edema, Lt Headedness, Other Gastrointestinal: No: Nausea, Vomiting, Abdominal Pain, Diarrhea, Constipation, Melena, Hematochezia, Other Genitourinary: No Dysuria, No Frequency, No Incontinence, No Hematuria, No Retention, No Other Musculoskeletal: No: other, neck pain, shoulder pain, arm pain, back pain, hand pain, leg pain, foot pain Skin: No Urticaria, No Rash, No Other Neurological: No: Weakness, Numbness, Incoordination, Change in speech, Confusion, Seizures, Other Objective Vitals and I/O Vital Sign (Last 24 Hours) 05/16/25 05/16/25 07:30 11:51 Temp 97.9 Pulse 98 Resp 17 B/P (MAP) 158/88 Pulse Ox 98 O2 Delivery Room Air O2 Flow Rate 3 FiO2 32 General: Alert, Oriented X3, Cooperative, Other (WITH NG TO LIS) HEENT: Atraumatic, PERRLA, EOMI Neck: Supple, No JVD, No thyromegaly Lungs: Other (VERY DISTANT BS BILATERALLY) Heart: Other (MILD TACHYCARDIA ) Abdomen: Other (DECREASED BS NO REBOUND AND HAS BILATERA LOWER ABD PAIN ON PAL PATION) Extremities: No clubbing, No cyanosis, No edema Skin: No rashes, No significant lesion Neuro: Normal speech, Normal tone, Other (GENERALIZED WEAKNESS) Psych/Mental Status: Mental status NL, Mood NL, Thoughts/Content NL Results RADIOLOGY: [] EKG: [] Laboratory Tests Test 05/16/25 03:53 White Blood Count 19.9 K/uL (4.8-10.8) H Red Blood Count 3.94 MIL/uL (4.00-5.50) L Hemoglobin 11.7 g/dL (12.0-16.0) L Hematocrit 34.8 % (36-48) L Mean Corpuscular Volume 88.3 fL (79-99) Mean Corpuscular Hemoglobin 29.7 pg (27.0-33.0) Mean Corpuscular Hemoglobin Concent 33.6 g/dL (32.0-36.0) Red Cell Distribution Width 13.2 % (11.0-15.5) Platelet Count 377 K/uL (130-400) Mean Platelet Volume 9.4 fL (7.5-10.5) Nucleated Red Blood Cells 0.0 % (0.0-0.19) Sodium Level 135 mmol/L (136-145) L Potassium Level 3.4 mmol/L (3.5-5.1) L Chloride Level 97 mmol/L (101-111) L Carbon Dioxide Level 28 mmol/L (21-32) Blood Urea Nitrogen 49 mg/dL (7-18) H Creatinine 0.9 mg/dL (0.5-1.0) Glomerular Filtration Rate Calc 63 mL/min (>90) Random Glucose 137 mg/dL (70-105) H Total Calcium 8.9 mg/dL (8.5-10.1) Medications Current Medications Ceftriaxone Sodium 1 gm ONCE ONCE IVPB Last administered on 05/15/25at 09:33; Start 05/15/25 at 09:00; Stop 05/15/25 at 09:01; Status DC Albuterol 1 UDVIAL [id number] IH Last administered on 05/16/25at 06:27; Start 05/15/25 at 12:00; Stop 06/14/25 at 11:59 Albuterol Sulfate 1.25 [id number] PRN IH Last administered on 05/16/25at 02:29; Start 05/15/25 at 09:00; Stop 05/16/25 at 10:27; Status DC Hydralazine HCl 25 mg QID PRN PO; Start 05/15/25 at 09:00; Stop 05/15/25 at 09:35; Status DC Diltiazem HCl 10 mg Q6H6 IVP; Start 05/15/25 at 12:00; Stop 05/15/25 at 09:26; Status DC Enoxaparin Sodium 30 mg DAILY SQ Last administered on 05/15/25at 09:34; Start 05/15/25 at 09:00; Stop 06/14/25 at 08:59 Sodium Chloride 1,000 ml @ 100 mls/hr Q10H IV Last administered on 05/16/25at 13:12; Start 05/15/25 at 09:00; Stop 06/14/25 at 08:59 Morphine Sulfate 2 mg Q3H3 PRN IVP Last administered on 05/15/25at 14:25; Start 05/15/25 at 09:30; Stop 05/22/25 at 09:29 Morphine Sulfate 4 mg Q3H3 PRN IVP; Start 05/15/25 at 09:30; Stop 05/22/25 at 09:29 Diltiazem HCl 10 mg Q6H IVP Last administered on 05/15/25at 15:45; Start 05/15/25 at 09:30; Stop 05/15/25 at 17:27; Status DC Hydralazine HCl 25 mg Q6H PRN IV Last administered on 05/15/25at 11:32; Start 05/15/25 at 10:00; Stop 05/15/25 at 17:34; Status DC Ondansetron HCl 4 mg Q6H PRN IVP; Start 05/15/25 at 14:30; Stop 06/14/25 at 14:29 Benzocaine 1 SPRAY Q4PRN PRN TP Last administered on 05/16/25at 05:59; Start 05/15/25 at 14:30; Stop 05/16/25 at 10:27; Status DC Diltiazem HCl 10 mg TID IVP Last administered on 05/15/25at 21:20; Start 05/15/25 at 21:00; Stop 05/16/25 at 20:59 Acetaminophen 650 mg Q6H PRN PO; Start 05/15/25 at 17:30; Stop 06/14/25 at 17: 29 Acetaminophen 650 mg Q4H PRN PO; Start 05/15/25 at 17:30; Stop 06/14/25 at 17:29 Al Hydroxide/Mg Hydroxide 30 ml Q6H PRN PO; Start 05/15/25 at 17:30; Stop 06/14/25 at 17:29 Famotidine 20 mg QODAY IV; Start 05/16/25 at 09:00; Stop 06/15/25 at 08:59 Dextrose 50 ml AD PRN IV; Start 05/15/25 at 17:30; Stop 06/14/25 at 17:29 Glucagon 1 mg AD PRN IM; Start 05/15/25 at 17:30; Stop 06/14/25 at 17:29 Potassium Chloride 100 ml @ 100 mls/hr AD PRN IV; Start 05/15/25 at 17:30; Stop 06/14/25 at 17:29 Potassium Chloride 20 meq AD PRN PO Last administered on 05/16/25at 05:54; Start 05/15/25 at 17:30; Stop 06/14/25 at 17:29 Potassium Chloride 20 meq AD PRN PO; Start 05/15/25 at 17:30; Stop 06/14/25 at 17:29 Potassium Chloride 100 ml @ 50 mls/hr AD PRN IV; Start 05/15/25 at 17:30; Stop 06/14/25 at 17:29 Magnesium Sulfate 50 ml @ 0 mls/hr PROTOCOL PRN IV; Start 05/15/25 at 17:30; Stop 06/14/25 at 17:29 Bisacodyl 10 mg ONCE ONCE RC Last administered on 05/15/25at 21:22; Start 05/15/25 at 21:00; Stop 05/15/25 at 21:01; Status DC Hydralazine HCl 10 mg Q4H4 PRN IV; Start 05/15/25 at 18:00; Stop 06/14/25 at 09:59 Labetalol HCl 10 mg Q4HPRN PRN IV Last administered on 05/16/25at 00:13; Start 05/15/25 at 22:00; Stop 06/14/25 at 21:59 Albuterol Sulfate 1.25 Q2HPRN PRN IH; Start 05/16/25 at 10:30; Stop 06/14/25 at 08:59 Benzocaine 1 SPRAY Q4PRN TP; Start 05/16/25 at 10:30; Stop 05/16/25 at 10:47; Status DC Benzocaine 50 MCG/ SPRAY Q2HPRN PRN TP; Start 05/16/25 at 10:30; Stop 06/15/25 at 10:29 Piperacillin Sod/ Tazobactam Sod 3.375 gm Q8H IV; Start 05/16/25 at 10:30; Stop 05/16/25 at 13:01; Status DC Benzocaine 1 SPRAY Q6H6 TP Last administered on 05/16/25at 13:03; Start 05/16/25 at 12:00; Stop 06/15/25 at 10:29 Piperacillin Sod/ Tazobactam Sod 3.375 gm Q8H IV Last administered on 05/16/25at 13:06; Start 05/16/25 at 13:00; Stop 05/26/25 at 12:59 Assessment/Plan RADIOLOGY : KUB 05/16/2025 PRELIM - STILL HAS DILATED LOOPS PF BOWEL CT ABDOMEN/PELVIS W/O CONTRAST - 05/15/2025 FINDINGS: LUNG BASES: The lung bases appear clear. No pleural effusions are seen. LIVER: Unremarkable. GALLBLADDER AND BILE DUCTS: The gallbladder appears within normal limits. No radioopaque gallstones are seen. No biliary ductal dilatation is evident. PANCREAS: Appears atrophic with dilated main pancreatic duct (measuring 5 mm) with diffuse intraparenchymal calcifications. SPLEEN: Unremarkable. ADRENAL GLANDS: Unremarkable. KIDNEYS, URETERS, AND BLADDER: Left renal cortical cyst measuring 2 x 2 cm in the interpolar region of left kidney. Right renal cortical cyst measuring 1.6 x 1.6 cm in the lower pole of right kidney. There is no hydronephrosis or hydroureter. No urinary calculi are seen. STOMACH AND BOWEL: Severe dilatation of the cecum, ascending colon, transverse colon and descending colon with gradual tapering at the sigmoid colon distended with fecal matter. PERITONEUM: Mild to moderate ascites . No free air. LYMPH NODES: No lymphadenopathy is evident. REPRODUCTIVE: Post hysterectomy status. VASCULATURE: No evidence of abdominal aortic aneurysm. Atherosclerotic intimal wall calcifications present involving abdominal aorta and its branches. BONES: No aggressive appearing osseous lesion. No acute osseous pathology evident. Scoliosis of the lumbar spine with convexity toward right. Moderate to severe lumbar spondylosis. Post-right total hip arthroplasty status. IMPRESSION: Severe dilatation of the cecum, ascending colon, transverse colon and descending colon with gradual tapering at the sigmoid colon, distended with fecal matter. Consistent with large bowel ileus versus distal obstruction. Suggested clinical correlation. Chronic calcific pancreatitis. Mild to moderate ascites. Bilateral renal cortical cysts. 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 - DR JIMENEZ DJMadai WITH A RIGHT TOTAL HIP ARTHROPLASTY - 08/2018 SHE PRESENTED WITH AN ACUTE BOWEL OBSTRUCTION FECAL IMPACTION CODE STATUS DNR/ DNI PLAN: WILL MOVE TO PCCU AND CONTINUE TO MONITOR ON TELEMETRY AND CONTINUE GOOD HEART CONTROL ON IV MEDICATIONS WILL SCHEDULE IV BB AND OR CCB TO KEEP HR UNDER CONTROL CONT IV HYDRALAZINE NEEDED FOR BP CONTROL KEEP NPO WITH NG TO LIS CONTINUE IVF HYDRATION AND MONITOR FOR ANY CHF IV ANALGESICS AND ANTI EMETICS PRN CONT TO MONITOR AND SUPPLEMENT ELECTROLYTES AND MAGNESIUM PRN CONTINUE O2 PER NC AND ADJUST NEEDED CONT SCHEDULED NEBS AND PRN NEBS IN BETWEEN NEEDED EMPIRIC IV ANTIBIOTICS - - ZOSYN STARTED CONT IV PEPCID FOR STRESS ULCER PROPHYLAXIS CONT LOVENOX FOR DVT PROPHYLAXIS PATIENT TREATED WITH 1 DULCOLAX SUPP LAST NIGHT AND REPORTS HAD A VERY SMALL BM BUT VERY LITTLE KUB SHOWS PERSISTENT BOWEL DILATATION DISCUSSED AND ORDERED GNS CONSULTATION FOR ANY FURTHER RECOMMENDATIONS PROGNOSIS GUARDED AND PATIENT WELL AWARE AND REQUESTS CONSERVATIVE MEASURES ONLY ANSWERED ALL QUESTIONS AT BEDSIDE FOR PATIENT AND DAUGHTER ANASTACIO ABRAMS MD May 16, 2025 13:20
[2025-05-16] MEDS ORDERED: MAGNESIUM 2GM PREMIX 50ML 50 ML IV PRN (14:00)
[2025-05-16] MEDS ORDERED: LACT-441 PO (14:29)
[2025-05-16] MEDS ORDERED: TRAM50TA4 PO (14:31)
[2025-05-16] MEDS ORDERED: PANT40TA54 PO (14:31)
--- NOTE | 2025-05-16 15:12 | CONS ---
GENERAL SURGERY CONSULTATION NOTE DATE OF CONSULTATION: May 16, 2025 TIME OF CONSULTATION: 15:08 CONSULTING SERVICE: Gonzales Bautista MD REQUESTING PHYSICAIN: [ ] REASON FOR CONSULTATION: [ ] Abdominal distention Abdominal pain HISTORY OF PRESENT ILLNESS: [ ] 85-year-old lady who presented with abdominal pain She said this had been going on for about a week now with abdominal distention He became unbearable and she came to the hospital today She had one episode of emesis Her last bowel movement was yesterday PAST MEDICAL HISTORY: [ ]YPERTENSIVE HEART AND RENAL DISEASE WITH CHRONIC DIASTOLIC CHF EF > 50% COPD WITH CHRONIC RESPIRATORY FAILURE ON HOME O2 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 - DR SU 10/2013 AND A LEFT CAROTID STENT - 12/2013 BMI < 20 EX SMOKER - QUIT 07/08/2013 HX BREAST CA DX 2002- COMPLETED 5 YEARS OF ANASTROZOLE WITH DR CURTIS ALLERGIC RHINITIS GERD METABOLIC SYNDROME MIXED LIPIDS WITH STATIN MYOPATHY HYPOTHYROID OSTEOPOROSIS NEUROGENIC CLAUDICATION - LUMBAR MRI 08/2015 LUMBAR SPONDYLOSIS - DR JIMENEZ DJMadai WITH A RIGHT TOTAL HIP ARTHROPLASTY - 08/2018 PAST SURGICAL HISTORY: [ ] See above FAMILY HISTORY: [ ] Positive for hypertension in the father and coronary artery disease Mother had cancers SOCIAL HISTORY: [ ] No smoking No alcohol Current Medications Medications (Trade) Dose Ordered Sig/Margo Route Start Time Stop Time Status Last Admin Dose Admin Albuterol (DUOneb) 1 UDVIAL [id number] 05/15/25 12:00 06/14/25 11:59 05/16/25 13:26 1 UDVIAL Benzocaine (Hurricaine/ [place] 20% [place]) 1 SPRAY Q4PRN TP 05/16/25 10:30 05/16/25 10:47 DC Benzocaine (Hurricaine/ [place] 20% [place]) 1 SPRAY Q6H6 TP 05/16/25 12:00 06/15/25 10:29 05/16/25 13:03 1 MCG Diltiazem HCl (CARDIzem 25MG INJ) 10 mg Q6H IVP 05/15/25 09:30 05/15/25 17:27 DC 05/15/25 15:45 10 MG Diltiazem HCl (CARDIzem 25MG INJ) 10 mg Q6H6 IVP 05/15/25 12:00 05/15/25 09:26 DC Diltiazem HCl (CARDIzem 25MG INJ) 10 mg TID IVP 05/15/25 21:00 05/16/25 20:59 05/16/25 13:22 10 MG Enoxaparin Sodium (Lovenox) 30 mg DAILY SQ 05/15/25 09:00 06/14/25 08:59 05/15/25 09:34 30 MG Famotidine (Pepcid 20mg Vial) 20 mg QODAY IV 05/16/25 09:00 06/15/25 08:59 Piperacillin Sod/ Tazobactam Sod (Zosyn 3.375gm+NS 50ml) 3.375 gm Q8H IV 05/16/25 10:30 05/16/25 13:01 DC Piperacillin Sod/ Tazobactam Sod (Zosyn 3.375gm+NS 50ml) 3.375 gm Q8H IV 05/16/25 13:00 05/26/25 12:59 05/16/25 13:06 3.375 GM Sodium Chloride 1,000 ml @ 100 mls/hr Q10H IV 05/15/25 09:00 06/14/25 08:59 05/16/25 13:12 100 MLS/HR Allergies: Coded Allergies: No Known Drug Allergies (Unverified Allergy, Unknown, 08/19/18) REVIEW OF SYSTEMS: ACTUARIAL INTERN: [Denies headaches or blurring of vision.] RESP: [No cough, chest pain or SOB.] CVS: [No palpitaions.] GI: [abdominal pain with nausea vomiting no diarrhea or constipation.] IVETTE: [No dysuria or hematuria.] Musculoskeletal: [No swelling or joint pain.] BACK: [No pain or swelling.] All other systems are reviewed and essentially negative pertinent positives in HPI. PHYSICAL EXAMINATION: GENERAL: [Patient is lying in bed, elderly uncomfortable] HEAD: [Normal with no signs of head trauma.] EYES: [Not pale not jaundiced afebrile to touch.] ENT: [ Normal.] NECK: [Supple,no tenderness,no lymphadenopathy,no masses,no thyromegaly ,no bruits, no JVD.] LUNGS: [Clear breath sounds bilaterally. No wheezes, rales, or rhonchi.] HEART: [Regular rate and rhythm. Normal S1 and S2, without murmurs, rub or gallop.] ABD: [Distended slightly tender : [Normal, no suprapubic tenderness.] LYMPH: [No lymphadenopathy noted.] EXT: [ Warm soft, non tender.] SKIN: [ No rashes or lesions.] NEURO: [ Awake Alert and oriented x3.] Vital Signs (last 8hr) Date Time Temp Pulse Resp B/P (MAP) Pulse Ox O2 Delivery O2 Flow Rate FiO2 05/16/25 13:22 105 158/88 05/16/25 13:16 105 20 N/Cannula Low lpm 3.0 05/16/25 13:15 105 20 05/16/25 11:51 97.9 98 17 158/88 98 Room Air 05/16/25 11:00 97.9 113 18 139/79 97 Room Air 05/16/25 09:00 99 134/83 05/16/25 07:47 97.7 99 18 134/83 98 Room Air 05/16/25 07:30 98 Nasal Cannula* 3 32 LABORATORY: [ ] Hematology Labs: Test 05/16/25 03:53 05/15/25 06:56 Range/Units White Blood Count 19.9 H 4.8-10.8 K/uL Red Blood Count 3.94 L 4.00-5.50 MIL/uL Hemoglobin 11.7 L 12.0-16.0 g/dL Hematocrit 34.8 L 36-48 % Mean Corpuscular Volume 88.3 79-99 fL Mean Corpuscular Hemoglobin 29.7 27.0-33.0 pg Mean Corpuscular Hemoglobin Concent 33.6 32.0-36.0 g/dL Red Cell Distribution Width 13.2 11.0-15.5 % Platelet Count 377 130-400 K/uL Mean Platelet Volume 9.4 7.5-10.5 fL Nucleated Red Blood Cells 0.0 0.0-0.19 % Immature Granulocyte % (Auto) 0.5 0-1 % Neutrophils (%) (Auto) 87.7 H 40.0-77.0 % Lymphocytes (%) (Auto) 3.5 L 21.0-51.0 % Monocytes (%) (Auto) 8.2 3.0-13.0 % Eosinophils (%) (Auto) 0.0 0.0-8.0 % Basophils (%) (Auto) 0.1 0.0-5.0 % Neutrophils # (Auto) 19.0 H 1.8-7.7 K/uL Lymphocytes # (Auto) 0.8 L 1.0-4.8 K/uL Monocytes # (Auto) 1.8 H 0.1-1.0 K/uL Eosinophils # (Auto) 0.00 0.00-0.70 K/uL Basophils # (Auto) 0.03 0.00-0.20 K/uL Absolute Immature Granulocyte (auto 0.11 0-1 K/uL White Cell Morphology Comment See comments Chemistry Labs: Test 05/16/25 03:53 05/15/25 09:03 05/15/25 06:56 Range/Units Sodium Level 135 L 136-145 mmol/L Potassium Level 3.4 L 3.5-5.1 mmol/L Chloride Level 97 L 101-111 mmol/L Carbon Dioxide Level 28 21-32 mmol/L Blood Urea Nitrogen 49 H 7-18 mg/dL Creatinine 0.9 0.5-1.0 mg/dL Glomerular Filtration Rate Calc 63 >90 mL/min Random Glucose 137 H 70-105 mg/dL Total Calcium 8.9 8.5-10.1 mg/dL Lactic Acid Level 1.7 0.8-2.5 mmol/L Total Bilirubin 0.6 0.2-1.0 mg/dL Direct Bilirubin 0.1 0.0-0.3 mg/dL Aspartate Amino Transf (AST/SGOT) 17 10-37 U/L Alanine Aminotransferase (ALT/SGPT) 9 L 12-78 U/L Alkaline Phosphatase 108 50-136 U/L Total Protein 6.5 6.0-8.3 g/dL Albumin 3.3 L 3.5-5.0 g/dL Troponin I High Sensitivity 22 4-50 ng/L B-Type Natriuretic Peptide 97 0-100 pg/mL Lipase 16 16-77 U/L DIAGNOSTICS / RADIOLOGY: [Copy/Paste Echos/Imaging Report here] ASSESSMENT: [] Large bowel obstruction Likely secondary to fecal impaction With hugely dilated cecum Patient will rather not have surgery PLAN: Rehydrate Pain control Soapsuds enema May try Gastrografin enema tomorrow [ ]. GONZALES BAUTISTA MD May 16, 2025 15:12
[2025-05-16] MEDS: ALBUTEROL 0.042% 1.25MG/3ML IH PRN (16:54)
[2025-05-17] VITALS (13 sets, daily range): BP systolic 91–156; BP diastolic 56–96; PULSE 69–142; RESP 20–29; TEMP 97.3–98; O2SAT 93–99
[2025-05-17 05:26] LABS: NUCLEATED RED BLOOD CELLS 0.0 % (0.0-0.19); PLATELET COUNT (AUTO) 371.0 K/uL (130-400); RED BLOOD CELL COUNT(AUTO) 4.02 MIL/uL (4.00-5.50); RED CELL DISTRIBUTION WIDTH 13.3 % (11.0-15.5); WHITE BLOOD COUNT (AUTO) 19.2 K/uL (4.8-10.8)
[2025-05-17 05:49] LABS: CREATININE 1.1 mg/dL (0.5-1.0); GLOMERULAR FILTR. RATE CALC 50.0 mL/min (>90); GLUCOSE,RANDOM 168.0 mg/dL (70-105); SODIUM SERUM 135.0 mmol/L (136-145); UREA NITROGEN, BLOOD 59.0 mg/dL (7-18)
--- NOTE | 2025-05-17 06:37 | NUR ---
Performed SoapSuds Enema Performed SoapSuds enema with RN Vinnie at bedside. Enema was successful but pending patient to have a bowel movement. Will notify oncoming nurse coming.
--- NOTE | 2025-05-17 06:43 | HMCIMG ---
EXAM: CR Abdomen, 1 View. CLINICAL HISTORY: FU BOWEL OBS COMPARISON: CT abdomen dated 05/15/2025. FINDINGS: BOWEL: Gaseous distension of the large bowel. PERITONEUM/SOFT TISSUES: No free air evident. There are a few tiny calcifications in the region of the pancreas. BONES: No acute osseous abnormality. IMPRESSION: Acute large bowel obstruction. Chronic calcific pancreatitis. As compared to the prior CT abdomen dated 05/15/2025, no interval change noted. /[place]
--- NOTE | 2025-05-17 07:17 | EKG ---
[facility] Test Date: 2025-05-16 Test Time: 23:26:07 Pat Name: ENEIDA ANSARI Department: [facility] Room: 206 Gender: F Hoist Operator: RYNE CRUZ : 1940 Requested By: NIRU PFEIFFER Order Number: [id number] Reading MD: Thomas Mcmanus Measurements Intervals [place] Rate: 138 P: 71 ND: 152 QRS: -17 QRSD: 90 T: 81 QT: 272 QTc: 412 Interpretive Statements Sinus tachycardia with premature atrial complexes Nonspecific ST and T wave abnormality Compared to ECG 05/15/2025 06:49:13 ST (T wave) deviation now present Sinus rhythm no longer present Left ventricular hypertrophy no longer present Electronically Signed On 05-18-2025 07:24:50 CDT by Thomas Mcmanus Please click the below link to view image of tracing.
--- NOTE | 2025-05-17 08:32 | HMCIMG ---
EXAM: CR Chest, 1 View. CLINICAL HISTORY: SOB COMPARISON: 09/28/2023. FINDINGS: LUNGS: Haziness at right lower lung could be due to subsegmental atelectasis, however pneumonia in this region not excluded. Correlate clinically. PLEURAL SPACES: No evidence of pleural effusion or pneumothorax. MEDIASTINUM: The cardiomediastinal silhouette is within normal limits. BONES: No aggressive appearing osseous lesion seen. MISCELLANEOUS: Enteric tube is in stomach. IMPRESSION: 1. Haziness in right lower lung, possibly due to subsegmental atelectasis or pneumonia. Clinical correlation recommended. 2. Enteric tube in stomach. /[place]
[2025-05-17 14:30] LABS: ABG BASE EXCESS -4.8 mmol/L (-2.0-3.0); ABG HCO3 24.0 mmol/L (21.0-28.0); ABG OXYGEN SATURATION 94.6 % (94.0-98.0); ABG PH 7.218 (7.350-7.450); DEVICE COMMENT RR SAN JUANA; PO2, ARTERIAL BG 87.1 mmHg (83.0-108.0); TEMPERATURE, CELSIUS BG 37.0 CELSIUS (35.5-37.0); VENT MODE, BG BIPAP 12-5 R 14 (ROOM AIR)
--- NOTE | 2025-05-17 14:57 | NUR ---
DCP: PENDING sw spoke to pt's daughter jayjay spangler [phone]. Pt lives at her home with her significant other. Daughter Terry Pena is [facility] [employer] [facility] [facility] [phone]. Daughter states pt does not have much activity in her day, getting from bed to bsc is pretty much all she does. Sig Other cleans bsc, pt does bed baths her self. Pt has walker, hospital bed, O2 from [place] [facility], portable tanks. No HH or HD services. Pt uses [facility] for rx needs and Pcp is clementine Ramirez. Family waiting for speak o surgeon and Dr Ramirez regarding MD recommendations for dc. SW and CM to follow and assist as needed Addendum: 05/17/25 at 1512 by HIRAL BLOOM Amended: Links added.
[2025-05-17 15:44] LABS: ABG PCO2 60 mmHg (32-45)
--- NOTE | 2025-05-17 17:05 | PN ---
Subjective Review of Systems PROGRESS NOTE Date of Visit: May 17, 2025 Time of Visit: 16:40 Events since last encounter HAS HAD INCREASE ISSUES WITH RESPIRATORY DISTRESS AND HAD TO BE PLACED ON BIPAP EARLY THIS AM Subjective PATIENT STILL HAVING INTERMITTENT ABD PAIN AND REMAINS WITH NG LIS General: No Fever, No Chills, No Night Sweats, No Fatigue, No Malaise, No A ppetite, No Other HEENT: No Head Aches, No Visual Changes, No Eye Pain, No Ear Pain, No Dysphasia, No Sinus Congestion, No Post Nasal Drip, No Sore Throat, No Other Pulmonary: No Dyspnea, No Cough, No Pleuritic Chest Pain, No Other Cardiovascular: No: Chest Pain, Palpitations, Orthopnea, Paroxysmal Noc. Dyspnea, Edema, Lt Headedness, Other Gastrointestinal: No: Nausea, Vomiting, Abdominal Pain, Diarrhea, Constipation, Melena, Hematochezia, Other Genitourinary: No Dysuria, No Frequency, No Incontinence, No Hematuria, No Retention, No Other Musculoskeletal: No: other, neck pain, shoulder pain, arm pain, back pain, hand pain, leg pain, foot pain Skin: No Urticaria, No Rash, No Other Neurological: No: Weakness, Numbness, Incoordination, Change in speech, Confusion, Seizures, Other Objective Vitals and I/O Vital Sign (Last 24 Hours) 05/17/25 05/17/25 05/17/25 07:10 11:00 14:32 Temp 97.5 Pulse 142 Resp 25 B/P (MAP) 101/72 Pulse Ox 96 O2 Delivery BIPAP O2 Flow Rate 3.0 FiO2 40 Intake & Output (last 24hrs) 05/16/25 05/16/25 05/17/25 15:00 23:00 07:00 Intake Total 550.0 ml 850.0 ml Output Total 150 ml 500 ml Balance 400.0 ml 350.0 ml General: Alert, Oriented X3, Cooperative, Other (WITH NG TO LIS) HEENT: Atraumatic, PERRLA, EOMI Neck: Supple, No JVD, No thyromegaly Lungs: Other (VERY DISTANT BS BILATERALLY) Heart: Other (MILD TACHYCARDIA ) Abdomen: Other (DECREASED BS NO REBOUND AND HAS BILATERA LOWER ABD PAIN ON PALPATION) Extremities: No clubbing, No cyanosis, No edema Skin: No rashes, No significant lesion Neuro: Normal speech, Normal tone, Other (GENERALIZED WEAKNESS) Psych/Mental Status: Mental status NL, Mood NL, Thoughts/Content NL Results RADIOLOGY: [] EKG: [] Laboratory Tests Test 05/17/25 05:18 05/17/25 14:28 White Blood Count 19.2 K/uL (4.8-10.8) H Red Blood Count 4.02 MIL/uL (4.00-5.50) Hemoglobin 12.1 g/dL (12.0-16.0) Hematocrit 36.1 % (36-48) Mean Corpuscular Volume 89.8 fL (79-99) Mean Corpuscular Hemoglobin 30.1 pg (27.0-33.0) Mean Corpuscular Hemoglobin Concent 33.5 g/dL (32.0-36.0) Red Cell Distribution Width 13.3 % (11.0-15.5) Platelet Count 371 K/uL (130-400) Mean Platelet Volume 9.2 fL (7.5-10.5) Nucleated Red Blood Cells 0.0 % (0.0-0.19) Sodium Level 135 mmol/L (136-145) L Potassium Level 4.3 mmol/L (3.5-5.1) Chloride Level 98 mmol/L (101-111) L Carbon Dioxide Level 27 mmol/L (21-32) Blood Urea Nitrogen 59 mg/dL (7-18) H Creatinine 1.1 mg/dL (0.5-1.0) H Glomerular Filtration Rate Calc 50 mL/min (>90) Random Glucose 168 mg/dL (70-105) H Total Calcium 9.3 mg/dL (8.5-10.1) Magnesium Level 2.40 mg/dL (1.80-2.40) Blood Gas Specimen Type Arterial Arterial Blood pH 7.218 (7.350-7.450) Arterial Blood Partial Pressure CO2 60 mmHg (32-45) *H Arterial Blood Partial Pressure O2 87.1 mmHg (83.0-108.0) Arterial Blood HCO3 24.0 mmol/L (21.0-28.0) Arterial Blood Oxygen Saturation 94.6 % (94.0-98.0) Arterial Blood Base Excess -4.8 mmol/L (-2.0-3.0) L Blood Gas Temperature 37.0 CELSIUS (35.5-37.0) Blood Gas Vent Mode BIPAP 12-5 R 14 (ROOM AIR) FiO2 40.0 % Blood Gas Specimen Comment RR CARMEN Medications Current Medications Ceftriaxone Sodium 1 gm ONCE ONCE IVPB Last administered on 05/15/25at 09:33; Start 05/15/25 at 09:00; Stop 05/15/25 at 09:01; Status DC Albuterol 1 UDVIAL [id number] IH Last administered on 05/17/25at 11:17; Start 05/15/25 at 12:00; Stop 06/14/25 at 11:59 Albuterol Sulfate 1.25 [id number] PRN IH Last administered on 05/16/25at 02:29; Start 05/15/25 at 09:00; Stop 05/16/25 at 10:27; Status DC Hydralazine HCl 25 mg QID PRN PO; Start 05/15/25 at 09:00; Stop 05/15/25 at 09:35; Status DC Diltiazem HCl 10 mg Q6H6 IVP; Start 05/15/25 at 12:00; Stop 05/15/25 at 09:26; Status DC Enoxaparin Sodium 30 mg DAILY SQ Last administered on 05/17/25at 10:02; Start 05/15/25 at 09:00; Stop 06/14/25 at 08:59 Sodium Chloride 1,000 ml @ 100 mls/hr Q10H IV Last administered on 05/16/25at 13:12; Start 05/15/25 at 09:00; Stop 06/14/25 at 08:59 Morphine Sulfate 2 mg Q3H3 PRN IVP Last administered on 05/17/25at 10:03; Start 05/15/25 at 09:30; Stop 05/17/25 at 13:57; Status DC Morphine Sulfate 4 mg Q3H3 PRN IVP; Start 05/15/25 at 09:30; Stop 05/17/25 at 13:57; Status DC Diltiazem HCl 10 mg Q6H IVP Last administered on 05/15/25at 15:45; Start 05/15/25 at 09:30; Stop 05/15/25 at 17:27; Status DC Hydralazine HCl 25 mg Q6H PRN IV Last administered on 05/15/25at 11:32; Start 05/15/25 at 10:00; Stop 05/15/25 at 17:34; Status DC Ondansetron HCl 4 mg Q6H PRN IVP Last administered on 05/16/25at 19:12; Start 05/15/25 at 14:30; Stop 06/14/25 at 14:29 Benzocaine 1 SPRAY Q4PRN PRN TP Last administered on 05/16/25at 05:59; Start 05/15/25 at 14:30; Stop 05/16/25 at 10:27; Status DC Diltiazem HCl 10 mg TID IVP Last administered on 05/16/25at 13:22; Start 05/15/25 at 21:00; Stop 05/16/25 at 20:59; Status DC Acetaminophen 650 mg Q6H PRN PO; Start 05/15/25 at 17:30; Stop 06/14/25 at 17:29 Acetaminophen 650 mg Q4H PRN PO; Start 05/15/25 at 17:30; Stop 06/14/25 at 17:29 Al Hydroxide/Mg Hydroxide 30 ml Q6H PRN PO; Start 05/15/25 at 17:30; Stop 06/14/25 at 17:29 Famotidine 20 mg QODAY IV; Start 05/16/25 at 09:00; Stop 06/15/25 at 08:59 Dextrose 50 ml AD PRN IV; Start 05/15/25 at 17:30; Stop 06/14/25 at 17:29 Glucagon 1 mg AD PRN IM; Start 05/15/25 at 17:30; Stop 06/14/25 at 17:29 Potassium Chloride 100 ml @ 100 mls/hr AD PRN IV; Start 05/15/25 at 17:30; Stop 06/14/25 at 17:29 Potassium Chloride 20 meq AD PRN PO Last administered on 05/16/25at 20:08; Start 05/15/25 at 17:30; Stop 06/14/25 at 17:29 Potassium Chloride 20 meq AD PRN PO; Start 05/15/25 at 17:30; Stop 06/14/25 at 17:29 Potassium Chloride 100 ml @ 50 mls/hr AD PRN IV; Start 05/15/25 at 17:30; Stop 05/17/25 at 09:07; Status DC Magnesium Sulfate 50 ml @ 0 mls/hr PROTOCOL PRN IV; Start 05/15/25 at 17:30; Stop 05/17/25 at 09:07; Status DC Bisacodyl 10 mg ONCE ONCE RC Last administered on 05/15/25at 21:22; Start 05/15/25 at 21:00; Stop 05/15/25 at 21:01; Status DC Hydralazine HCl 10 mg Q4H4 PRN IV; Start 05/15/25 at 18:00; Stop 06/14/25 at 09:59 Labetalol HCl 10 mg Q4HPRN PRN IV Last administered on 05/16/25at 00:13; Start 05/15/25 at 22:00; Stop 06/14/25 at 21:59 Albuterol Sulfate 1.25 Q2HPRN PRN IH Last administered on 05/16/25at 16:54; Start 05/16/25 at 10:30; Stop 06/14/25 at 08:59 Benzocaine 1 SPRAY Q4PRN TP; Start 05/16/25 at 10:30; Stop 05/16/25 at 10:47; Status DC Benzocaine 50 MCG/ SPRAY Q2HPRN PRN TP; Start 05/16/25 at 10:30; Stop 06/15/25 at 10:29 Piperacillin Sod/ Tazobactam Sod 3.375 gm Q8H IV; Start 05/16/25 at 10:30; Stop 05/16/25 at 13:01; Status DC Benzocaine 1 SPRAY Q6H6 TP Last administered on 05/17/25at 05:58; Start 05/16/25 at 12:00; Stop 06/15/25 at 10:29 Piperacillin Sod/ Tazobactam Sod 3.375 gm Q8H IV Last administered on 05/17/25at 15:45; Start 05/16/25 at 13:00; Stop 05/26/25 at 12:59 Magnesium Sulfate 50 ml @ 0 mls/hr PROTOCOL PRN IV; Start 05/16/25 at 14:00; Stop 06/15/25 at 13:59 Ketorolac Tromethamine 15 mg Q6H PRN IV; Start 05/16/25 at 18:00; Stop 05/17/25 at 09:07; Status DC Metoprolol Tartrate 2.5 mg ONCE ONCE IV Last administered on 05/16/25at 23:45; Start 05/16/25 at 23:30; Stop 05/16/25 at 23:34; Status DC Hydromorphone HCl 0.5 mg Q6H PRN IVP Last administered on 05/17/25at 14:28; Start 05/17/25 at 14:00; Stop 05/22/25 at 13:59 Assessment/Plan RADIOLOGY : CXR1VW - CHEST 1VW FINDINGS: LUNGS: Haziness at right lower lung could be due to subsegmental atelectasis, however pneumonia in this region not excluded. Correlate clinically. PLEURAL SPACES: No evidence of pleural effusion or pneumothorax. MEDIASTINUM: The cardiomediastinal silhouette is within normal limits. BONES: No aggressive appearing osseous lesion seen. MISCELLANEOUS: Enteric tube is in stomach. IMPRESSION: 1. Haziness in right lower lung, possibly due to subsegmental atelectasis or pneumonia. Clinical correlation recommended. 2. Enteric tube in stomach. KUB 05/16/2025 FINDINGS BOWEL: Gaseous distension of the large bowel. PERITONEUM/SOFT TISSUES: No free air evident. There are a few tiny calcifications in the region of the pancreas. BONES: No acute osseous abnormality. IMPRESSION: Acute large bowel obstruction. Chronic calcific pancreatitis. As compared to the prior CT abdomen dated 05/15/2025, no interval change noted. CT ABDOMEN/PELVIS W/O CONTRAST - 05/15/2025 FINDINGS: LUNG BASES: The lung bases appear clear. No pleural effusions are seen. LIVER: Unremarkable. GALLBLADDER AND BILE DUCTS: The gallbladder appears within normal limits. No radioopaque gallstones are seen. No biliary ductal dilatation is evident. PANCREAS: Appears atrophic with dilated main pancreatic duct (measuring 5 mm) with diffuse intraparenchymal calcifications. SPLEEN: Unremarkable. ADRENAL GLANDS: Unremarkable. KIDNEYS, URETERS, AND BLADDER: Left renal cortical cyst measuring 2 x 2 cm in the interpolar region of left kidney. Right renal cortical cyst measuring 1.6 x 1.6 cm in the lower pole of right kidney. There is no hydronephrosis or hydroureter. No urinary calculi are seen. STOMACH AND BOWEL: Severe dilatation of the cecum, ascending colon, transverse colon and descending colon with gradual tapering at the sigmoid colon distended with fecal matter. PERITONEUM: Mild to moderate ascites . No free air. LYMPH NODES: No lymphadenopathy is evident. REPRODUCTIVE: Post hysterectomy status. VASCULATURE: No evidence of abdominal aortic aneurysm. Atherosclerotic intimal wall calcifications present involving abdominal aorta and its branches. BONES: No aggressive appearing osseous lesion. No acute osseous pathology evident. Scoliosis of the lumbar spine with convexity toward right. Moderate to severe lumbar spondylosis. Post-right total hip arthroplasty status. IMPRESSION: Severe dilatation of the cecum, ascending colon, transverse colon and descending colon with gradual tapering at the sigmoid colon, distended with fecal matter. Consistent with large bowel ileus versus distal obstruction. Suggested clinical correlation. Chronic calcific pancreatitis. Mild to moderate ascites. Bilateral renal cortical cysts. 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 WITH A RIGHT TOTAL HIP ARTHROPLASTY - 08/2018 SHE PRESENTED WITH AN ACUTE BOWEL OBSTRUCTION CONSTIPATION WITH FECAL IMPACTION CODE STATUS DNR/ DNI MILD URINARY RETENTION ACUTE ON CHRONIC HYPERCAPNIC AND HYPOXIC RESPIRATORY FAILURE PLAN PATIENT DID BETTER UNTIL EARLIER THIS AM WHEN SHE ACUTE BECAME SOB AND PLACED ON BIPAP CEBALLOS PLACED WITH 300 CC URINE FROM RETENTION CONTINUES WITH TACHYCARDIA AND WILL CONT TO ADJUST MEDICATIONS APPRECIATE GNS INPUT, PT REFUSING ANY SURGICAL INTERVENTION AND BEING MANAGED CONSERVATIVELY AND APPROPRIATELY SO DUE TO HER AGE AND COMORBID PROBLEM CONTINUES NPO WITH NG TO LIS, ASPIRATION PRECAUTIONS CONTINUE IVF HYDRATION AND MONITOR FOR ANY CHF CONTINUE IV ANALGESICS AND ANTI EMETICS NEEDED CONT TO MONITOR AND SUPPLEMENT ELECTROLYTES AND MAGNESIUM PRN CONTINUE O2 AND BRONCHODILATORS CONT IV ANTIBIOTICS WITH ZOSYN CONT IV PEPCID FOR STRESS ULCER PROPHYLAXIS CONT LOVENOX FOR DVT PROPHYLAXIS PATIENT WAS TREATED WITH AN ENEMA PER GNS RECOMMENDATIONS AND DID DECREASE HER ABDOMINAL DISTENTION BUT CONTINUES IN SIGNIFICANT ABDOMINAL PAIN AND WILL WAIT FOR ANY FURTHER RECOMMENDATIONS PROGNOSIS GUARDED AND DISCUSSED WITH PATIENT 2 DAUGHTERS - SHANELLE WHO HAS HER POA AND MIGUEL ANGEL BY PHONE ANSWERED ALL QUESTIONS EXTENSIVELY WILL PROCEED WITH PULMONOLOGY CONSULT WELL TO HELP WITH HER DECLINE IN RESPIRATORY STATUS ANASTACIO ABRAMS MD May 17, 2025 17:05
--- NOTE | 2025-05-17 17:25 | CONS ---
[facility] CONSULTATION NOTE Date Patient Seen: May 17, 2025 Time of Visit: 1929 Supervising Physician: [Dr. Xu Gonzalez Reason for Consultation: [Pulmo consult] Primary Care Physician: [Dr. Martha Ramirez] Outpatient Specialists: [ ] Inpatient Consults: [Surgery: Dr. Story, [facility]-pulmo] PROBLEM LIST: Acute hypoxic hypercarbic resp failure requiring BIPAP-not POA Acute respiratory acidosis-not POA NSTEMI-likely demand ischemia, r/o cardiac etiology Large bowel obstruction-POA Ascites-POA Bilateral renal cyst-POA Suspected CAP-POA Sepsis 2/2 above-POA OTHER COMORBIDITIES: PER PRIMARY ATTENDING'S LIST 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 DIASTOLIC CHF EF > 50% COPD WITH CHRONIC RESPIRATORY FAILURE ON HOME O2 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 - DR SU 10/2013 AND A LEFT CAROTID STENT - 12/2013 BMI < 20 EX SMOKER - QUIT 07/08/2013 HX BREAST CA DX 2002- COMPLETED 5 YEARS OF ANASTROZOLE WITH DR CURTIS ALLERGIC RHINITIS GERD METABOLIC SYNDROME MIXED LIPIDS WITH STATIN MYOPATHY HYPOTHYROID OSTEOPOROSIS 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 q1H x 190 while awake -PRN neb treatment -We will obtain CTA chest and CT AP to r/o P.E and recheck status of LBO respectively -Patient is DNR -Surgical eval per Dr. Story, appreciate recx -The rest of medical management per primary team HPI: [Patient is unable to engage with the HPI due to using BIPAP. Per hospitalist's notes: " THIS IS A 85 YR OLD WOMAN WITH HISTORY OF SEVERE COPD ON HOME OXYGEN THERAPY, A-FIB AND CHRONIC PAIN FROM LUMBAR STENOSIS. SHE HAS BEEN HAVING PROBLEMS WITH CONSTIPATION FOR THE PAST WEEK WITHOUT RELIEF DESPITE MULTIPLE EFFORTS. SHE HAS BEEN USING OTC LAXATIVES WITH DULCOLAX AND COLACE WHICH DID NOT HELP AND THEN SHE WAS PRESCRIBED LACTULOSE BUT HAD STILL HAD A BOWEL MOVEMENT. SHE REPORTS HER ABDOMEN GOT VERY DISTENDED AND TENSE WITH WORSENING BILATERAL LOWER ABDOMINAL PAIN AND ASSOCIATED WITH NAUSEA AND VOMITING THAT PROMPTED HER TO GO TO THE ER FOR EVALUATION. SHE DENIED ANY FEVERS OR CHILLS, CHEST PAINS, INCREASED SOB OR PALPITATIONS. SHE RECENTLY FILLED OUT AN OUT OF HOSPITAL DNR IN OUR OFFICE AND REPORTS SHE WANTS TO CONTINUE CURRENT CODES STATUS AND PREFERS CONSERVATIVE MEASURES DUE TO HER AGE AND COMORBIDITIES." BIS team was consulted due to acute hypoxic hypercarbic resp failure. Per RN, after the patient received IV Dilaudid, patient became more lethargic and dyspneic. CHF and pulmonary work-up was ordered which came back elevated D-dimer, trops and BNP. Physical assessment revealed diminished lung sounds on bilateral upper and fine rales on brianna bases. She was currently placed on BIPAP. We will continue to follow along patient's response to treatment as per above-mentioned plans. PAST MEDICAL HX: see above PAST SURGICAL HX: noncontributory SOCIAL HISTORY: No tobacco, ETOH, or illicit drug use Coded Allergies: No Known Drug Allergies (Unverified Allergy, Unknown, 08/19/18) REVIEW OF SYSTEMS: Unable to perform 12 point ROS due to patient's lethargy, RN claims she got IV Dilaudid earlier PHYSICAL EXAM: GENERAL: Lethargy, weak, awake unable to assess orientation due to BIPAP and weakness HEENT: EOMI, Sclera non icteric, moist mucosa NECK: Supple, no JVD, trachea midline LUNGS: Diminished lung sounds on bilateral upper and fine rales on brianna bases. No wheezes HEART: Regular rate and rhythm. Normal S1 and S2, without murmurs ABD: Abdomen mildly soft, diffused tenderness. Bowel sounds tinkling, EXT: No clubbing cyanosis or edema NEURO: Alert and oriented to person, follows commands Vital Signs (last 8hr) Date Time Temp Pulse Resp B/P (MAP) Pulse Ox O2 Delivery O2 Flow Rate FiO2 05/17/25 16:00 97.3 123 28 91/56 95 BIPAP 05/17/25 14:32 142 25 40 05/17/25 11:11 121 22 05/17/25 11:00 97.5 128 22 101/72 96 BIPAP 05/17/25 09:58 124 24 40 LABS: Hematology Labs: Test 05/17/25 05:18 Range/Units White Blood Count 19.2 H 4.8-10.8 K/uL Red Blood Count 4.02 4.00-5.50 MIL/uL Hemoglobin 12.1 12.0-16.0 g/dL Hematocrit 36.1 36-48 % Mean Corpuscular Volume 89.8 79-99 fL Mean Corpuscular Hemoglobin 30.1 27.0-33.0 pg Mean Corpuscular Hemoglobin Concent 33.5 32.0-36.0 g/dL Red Cell Distribution Width 13.3 11.0-15.5 % Platelet Count 371 130-400 K/uL Mean Platelet Volume 9.2 7.5-10.5 fL Nucleated Red Blood Cells 0.0 0.0-0.19 % Chemistry Labs: Test 05/17/25 05:18 Range/Units Sodium Level 135 L 136-145 mmol/L Potassium Level 4.3 3.5-5.1 mmol/L Chloride Level 98 L 101-111 mmol/L Carbon Dioxide Level 27 21-32 mmol/L Blood Urea Nitrogen 59 H 7-18 mg/dL Creatinine 1.1 H 0.5-1.0 mg/dL Glomerular Filtration Rate Calc 50 >90 mL/min Random Glucose 168 H 70-105 mg/dL Total Calcium 9.3 8.5-10.1 mg/dL Magnesium Level 2.40 1.80-2.40 mg/dL DIAGNOSTICS / RADIOLOGY RESULTS: [ ] PLAN NEURO: Minimize central acting medications as possible. Maintain fall precautions, adequate lighting during the day PULMONARY: Supplemental 02 as needed. Maintain aspiration precautions at all times CARDIOVASCULAR: Follow hemodynamics. Vital signs per facility protocol GI & NUTRITION: Continue with nutritional support. Continue stool softeners and laxatives as needed. KIDNEYS & ELECTROLYTES: Strict monitoring of intake, output and overall fluid balance. Avoid nephrotoxic medications to the extent possible. Medications to be dosed according to renal function. Monitor electrolytes and replace as needed ENDOCRINE: Maintain blood glucose between 100-180 at all times. Hypoglycemia protocol in place INFECTIOUS DISEASE: Trend temperature, WBC and procalcitonin level Follow cultures, deescalate antibiotics as soon as possible. Panculture if new onset fever ONCOLOGY/HEMATOLOGY/COAGULATION: Monitor for s/s of bleeding Monitor hemoglobin, coagulation studies as needed SKIN: Pressure ulcer prevention per facility protocol Specialty mattress ORTHO/REHAB: Continue PT/OT Prophylaxis: Continue GI and DVT prophylaxis Code Status: Full Resuscitation Disposition: Home SANJAY WOODSON May 17, 2025 17:25
[2025-05-17] MEDS: DOXYCYCLINE 100MG+NS 250ML 250 ML IV SCH (18:31)
[2025-05-17 19:17] LABS: ABG BASE EXCESS -6.4 mmol/L (-2.0-3.0); ABG HCO3 23.5 mmol/L (21.0-28.0); ABG OXYGEN SATURATION 96.3 % (94.0-98.0); DEVICE COMMENT RR RN; PO2, ARTERIAL BG 106.7 mmHg (83.0-108.0); TEMPERATURE, CELSIUS BG 37.0 CELSIUS (35.5-37.0); VENT MODE, BG BIPAP 12,6 (ROOM AIR)
[2025-05-17 19:35] LABS: ABG PH 7.168 (7.350-7.450)
[2025-05-17 19:43] LABS: ABG PCO2 66 mmHg (32-45)
--- NOTE | 2025-05-17 20:22 | EKG ---
[facility] Test Date: 2025-05-17 Test Time: 20:22:17 Pat Name: ENEIDA ANSARI Department: [facility] Room: 206 Gender: F Horticultural Farmer: NED CRUZ : 1940 Requested By: SANJAY WOODSON Order Number: [id number] Reading MD: Thomas Mcmanus Measurements Intervals [place] Rate: 116 P: 76 WV: 150 QRS: 39 QRSD: 96 T: 74 QT: 320 QTc: 444 Interpretive Statements Sinus tachycardia Compared to ECG 05/16/2025 23:26:07 Atrial premature complex(es) no longer present ST (T wave) deviation no longer present Electronically Signed On 05-18-2025 07:33:48 CDT by Thomas Mcmanus Please click the below link to view image of tracing.
[2025-05-17] MEDS ORDERED: IOHEXOL 350 MG/ML 100ML INFUS..BTL IV ONE (20:39)
--- NOTE | 2025-05-17 20:49 | HMCIMG ---
EXAM: CR Chest, 1 View. CLINICAL HISTORY: ASSESS RESP DISTRESS COMPARISON: Radiograph dated May 17, 2025 at 5:25 AM FINDINGS: Enteric tube terminates within the stomach. Right lower lobe airspace disease may reflect atelectasis and/or an infectious process. There is no pleural effusion or pneumothorax. Heart size and pulmonary vessels are within normal limits. Clips project over the left axilla. Lucency within the right upper quadrant is concerning for pneumoperitoneum. Recommend CT imaging of the abdomen and pelvis for further evaluation. IMPRESSION: 1. Right lower lobe airspace disease, possibly atelectasis or infection. 2. Suspected pneumoperitoneum in the right upper quadrant. Recommend CT imaging of the abdomen and pelvis for further evaluation. /[place]
--- NOTE | 2025-05-17 21:54 | HMCIMG ---
EXAM: CT Abdomen and Pelvis With Intravenous Contrast CLINICAL HISTORY: 85-year-old female with bowel obstruction. TECHNIQUE: Axial computed tomography images of the abdomen and pelvis with intravenous contrast. Dose reduction technique was used including one or more of the following: automated exposure control, adjustment of mA and kV according to patient size, and/or iterative reconstruction. A standard dose of contrast was used. CONTRAST: OMNIPAQUE 350 35ML. COMPARISON: Compared to the prior CT abdomen and pelvis from 05/15/2025 at 7:49 AM. FINDINGS: LUNG BASES: Atelectasis of the lung bases is present. LIVER: Unremarkable. GALLBLADDER AND BILE DUCTS: The gallbladder is hydropic. Follow-up with MRCP as clinically indicated. No calcified stone. No ductal dilation, except for the dilation of the pancreatic duct is observed, however this finding pertains to the pancreas. PANCREAS: Dilation of the pancreatic duct is observed. SPLEEN: Unremarkable. ADRENAL GLANDS: Unremarkable. KIDNEYS, URETERS, AND BLADDER: Bilateral renal cysts noted; follow-up with ultrasound is recommended. No hydronephrosis or nephrolithiasis. No ureteral or bladder calculi. The Mckeon catheter appears to be coiled in the vaginal vault and does not appear to be in the bladder; clinical correlation is needed. STOMACH AND BOWEL: Severe thickening of the entire colon suggests pancolitis. Edema of the loops of small bowel suggests moderate small bowel enteritis. A large amount of ascites in the abdomen and pelvis is seen. Foci of localized free air are seen, in the epigastric there is suggestion of perforated bowel which may involve the small bowel or a portion of the transverse colon; clinical correlation is advised. APPENDIX: No specific mention of the appendix. PERITONEUM: A large amount of ascites in the abdomen and pelvis is seen. Foci of localized free air are seen, in the epigastric there is suggestion of perforated bowel which may involve the small bowel or a portion of the transverse colon; clinical correlation is advised. Pneumoperitoneum is new compared to the prior CT abdomen and pelvis. LYMPH NODES: No lymphadenopathy. REPRODUCTIVE: The Mckeon catheter appears to be coiled in the vaginal vault and does not appear to be in the bladder; clinical correlation is needed. VASCULATURE: Atherosclerotic iliac bifurcation is seen. ABDOMINAL WALL AND SOFT TISSUES: A large amount of pericardium is seen, with findings suggesting a perforated bowel. Right hip arthroplasty is seen. BONES: Moderate degenerative changes in the lumbar spine are present. Multilevel chronic compression deformities are seen throughout the lumbar spine. No fracture or suspicious osseous abnormality. IMPRESSION: 1. Findings suggestive of perforated bowel, possibly involving the small bowel or transverse colon, with new pneumoperitoneum compared to prior CT. Clinical correlation is advised. 2. Severe thickening of the entire colon consistent with pancolitis. 3. Moderate small bowel enteritis. 4. Large amount of ascites. 5. Hydropic gallbladder. Follow-up with MRCP as clinically indicated. 6. Bilateral renal cysts. Follow-up with ultrasound is recommended. 7. Mckeon catheter appears to be coiled in the vaginal vault and does not appear to be in the bladder; clinical correlation is needed. /[place]
--- NOTE | 2025-05-17 21:56 | HMCIMG ---
EXAM: CT Chest With Intravenous Contrast. CLINICAL HISTORY: 85-year-old female rule out PE TECHNIQUE: Axial computed tomography images of the chest with intravenous contrast. Dose reduction technique was used including one or more of the following: automated exposure control, adjustment of mA and kV according to patient size, and/or iterative reconstruction. CONTRAST: Omnipaque 650 65 mL COMPARISON: Chest x-ray dated 05/17/2025, 18:05 pm FINDINGS: LUNGS: No pulmonary mass. Bilateral mucus plugging seen in the lower lobes. Mild emphysematous changes throughout the lung yanez. PLEURAL SPACES: Small right pleural effusion. No pneumothorax. HEART AND MEDIASTINUM: No cardiomegaly. No significant pericardial effusion. Atherosclerotic coronary artery disease. LYMPH NODES: No lymphadenopathy. CHEST WALL AND UPPER ABDOMEN: Extensive free air is seen in the upper abdomen. Ascites in the upper abdomen. Nasogastric tube in the esophagus. BONES: Moderate degenerative changes thoracic spine. No acute osseous abnormality. OTHER FINDINGS: Please also see CT abdomen and pelvis report negative for pulmonary embolism. IMPRESSION: 1. No evidence of pulmonary embolism. 2. Extensive free air in the upper abdomen. Ascites in the upper abdomen. Please also see CT ABD/PEL report. 3. Small right pleural effusion. 4. Bilateral mucus plugging in the lower lobes. 5. Mild emphysematous changes throughout the lung yanez. /Gunlock
[2025-05-17 22:16] LABS: ABG BASE EXCESS -7.8 mmol/L (-2.0-3.0); ABG HCO3 21.1 mmol/L (21.0-28.0); ABG OXYGEN SATURATION 95.7 % (94.0-98.0); ABG PCO2 58 mmHg (32-45); CARBON MONOXIDE 0.5 % (0.5-1.5); DEVICE COMMENT RR CRYSTALRN; PO2, ARTERIAL BG 87.3 mmHg (83.0-108.0); TEMPERATURE, CELSIUS BG 37.0 CELSIUS (35.5-37.0); VENT MODE, BG BIPAP 12,6 (ROOM AIR)
--- NOTE | 2025-05-17 22:19 | NUR ---
NOTIFIED LONI PAUL NP CT ABD AND CHEST RESULTS AVAILABLE FOR REVIEW. 2231 - NOTIFIED DR. ONEAL OF CT ABD AND CT CHEST RESULTS, STATES HE WAS NOTIFIED PT REFUSING SURGERY. INFORMED DR. ONEAL, FAMILY AT BEDSIDE, DAUGHTER JARROD (POA) STATES IF PT HAD STATES SHE REFUSES SURGERY, THEY WILL RESPECT PTS WISHES TO REFUSE SURGERY WELL. 2237 - NOTIFIED DR. ABRAMS OF CT ABD AND CT CHEST RESULTS, STATES PT HAD VERBALIZE REFUSAL OF SURGERY. DR. ABRAMS, SPOKE TO JAIME GARAY VIA TELEPHONE, OF CT RESULTS, PTS WISHES TO REFUSE SURGERY, ALL QUESTIONS AND CONCERNED ANSWERED BY DR. ABRAMS VIA TELEPHONE. PT VERBALIZE UNDERSTANDING OF PTS CRITICAL CONDITION, PT STATES DR. ABRAMS MENTIONED COMFORT CARE IF FAMILY DECIDES TO WITHDRAWAL CARE. JARROD STATES SHE WILL SPEAK WITH REST OF FAMILY AND MAKE A DECISION, JARROD STATES REFUSAL OF SURGERY AT THIS TIME, CONTINUE WITH ALL MEDICAL MANAGEMENT. PT CURRENTLY LETHARGIC, SLEEPY, WITH BIPAP, UNABLE TO MAKE MEDICAL DECISIONS AT THIS TIME.
[2025-05-17 22:28] LABS: ABG PH 7.178 (7.350-7.450)
[2025-05-17] MEDS: SODIUM BICARB 50MEQ 50ML VIAL IV ONE (22:44)
[2025-05-17] MEDS: SODIUM BICARB 8.4% 50ML SYRING 150 MEQ in DEXTROSE 5%-WATER 1,000 ML IVP SCH (22:50)
--- NOTE | 2025-05-17 23:50 | NUR ---
BEDSIDE REPORT GIVEN TO NACNY FLOR FOR CONTINUATION OF CARE, PT TRANSFERRED TO ROOM 206 VIA HOSPITAL BED, PT TRANSFERRED WITH BIPAP ON, DAUGHTER NOTIFIED OF PT TRANSFERRED TO ROOM 206.
[2025-05-18] VITALS (14 sets, daily range): BP systolic 106–145; BP diastolic 54–97; PULSE 113–136; RESP 17–32; TEMP 97.3–97.9; O2SAT 93–94
[2025-05-18 00:15] LABS: ABG BASE EXCESS 1.9 mmol/L (-2.0-3.0); ABG HCO3 30.5 mmol/L (21.0-28.0); ABG OXYGEN SATURATION 92.8 % (94.0-98.0); ABG PCO2 66 mmHg (32-45); ABG PH 7.285 (7.350-7.450); DEVICE COMMENT RR YVONNERN; PO2, ARTERIAL BG 74.2 mmHg (83.0-108.0); TEMPERATURE, CELSIUS BG 37.0 CELSIUS (35.5-37.0); VENT MODE, BG BIPAP 12,6 (ROOM AIR)
--- NOTE | 2025-05-18 01:50 | NUR ---
R.R was increased to 32bpm. Addendum: 05/18/25 at 0440 by RT LILLY RT Amended: Links added.
[2025-05-18] MEDS ORDERED: RENAL DOSE IV STA (02:22)
[2025-05-18 02:27] LABS: NUCLEATED RED BLOOD CELLS 0.0 % (0.0-0.19); PLATELET COUNT (AUTO) 315.0 K/uL (130-400); RED BLOOD CELL COUNT(AUTO) 3.43 MIL/uL (4.00-5.50); RED CELL DISTRIBUTION WIDTH 13.8 % (11.0-15.5); WHITE BLOOD COUNT (AUTO) 14.4 K/uL (4.8-10.8)
[2025-05-18] MEDS ORDERED: VANCOMYCIN PROTOCOL PER PHARMACY IV SCH (02:30)
[2025-05-18] MEDS: VANCOMYCIN 750MG VIAL IVPB SCH (02:59)
[2025-05-18 03:41] LABS: CREATININE 1.6 mg/dL (0.5-1.0); GLOMERULAR FILTR. RATE CALC 32.0 mL/min (>90); GLUCOSE,RANDOM 202.0 mg/dL (70-105); SODIUM SERUM 143.0 mmol/L (136-145); UREA NITROGEN, BLOOD 68.0 mg/dL (7-18)
--- NOTE | 2025-05-18 08:52 | NUR ---
NURSING NOTE DR. ABRAMS MADE AWARE TUNDE PENDING TO SEE PATIENT AND THE FAMILY IS AT BEDSIDE. MD SAYS SAYS SHE WILL BE HERE SOON TO SPEAK WITH FAMILY. FAMILY UPDATED.
--- NOTE | 2025-05-18 09:29 | NUR ---
DIRECTOR ALUMNI RELATIONS AT BEDSIDE. STATES INFORMED FAMILY SCALEHOUSE ATTENDANT TO BE AT BEDSIDE THIS AFTERNOON. FAMILY REQUEST COMFORT MEASURES AFTER SCALEHOUSE ATTENDANT READS THE PATIENT LAST RITES.
--- NOTE | 2025-05-18 09:39 | HMCIMG ---
ABD 1VW REASON: FU BOWEL OBSTRUCTION FINDINGS: Single image of the abdomen was obtained. Bowel gas pattern demonstrate there is distended loop of sigmoid colon on the right side suggesting of a sigmoid volvulus. There is mild dilatation of the small bowel.. Bones and soft tissues appear unremarkable. There are no abnormal calcifications. There is no evidence of foreign body. There is atherosclerotic change of the abdominal aorta and iliac vessels. There is mild levoscoliosis of the lumbar spine. There is right hip arthroplasty. There is a nasogastric tube with the tip in the fundus of the stomach. IMPRESSION: 1. Radiographic suspicious for sigmoid volvulus.
--- NOTE | 2025-05-18 09:53 | PN ---
Subjective Review of Systems PROGRESS NOTE Date of Visit: May 18, 2025 Time of Visit: 09:52 Events since last encounter PATIENT MOVED TO ICU OVERNIGHT DUE TO DECLINE Subjective PATIENT STILL HAVING INTERMITTENT ABD PAIN AND REMAINS WITH NG LIS AND ON INTERMITTENT BIPAP General: No Fever, No Chills, No Night Sweats, No Fatigue, No Malaise, No Appetite, No Other HEENT: No Head Aches, No Visual Changes, No Eye Pain, No Ear Pain, No Dysphasia, No Sinus Congestion, No Post Nasal Drip, No Sore Throat, No Other Pulmonary: No Dyspnea, No Cough, No Pleuritic Chest Pain, No Other Cardiovascular: No: Chest Pain, Palpitations, Orthopnea, Paroxysmal Noc. Dyspnea, Edema, Lt Headedness, Other Gastrointestinal: Abdominal Pain; No: Nausea, Vomiting, Diarrhea, Constipation, Melena, Hematochezia, Other Genitourinary: No Dysuria, No Frequency, No Incontinence, No Hematuria, No Retention, No Other Musculoskeletal: No: other, neck pain, shoulder pain, arm pain, back pain, hand pain, leg pain, foot pain Skin: No Urticaria, No Rash, No Other Neurological: No: Weakness, Numbness, Incoordination, Change in speech, Confusion, Seizures, Other Objective Vitals and I/O Vital Sign (Last 24 Hours) 05/17/25 05/18/25 07:10 09:39 Pulse 117 Resp 32 O2 Flow Rate 3.0 FiO2 40 Intake & Output (last 24hrs) 05/17/25 05/17/25 05/18/25 15:00 23:00 07:00 Intake Total 500.0 ml 1149.5 ml Output Total 150 ml 75 ml Balance 500.0 ml -150 ml 1074.5 ml General: Alert, Oriented X3, Cooperative, Other (WITH NG TO LIS) HEENT: Atraumatic, PERRLA, EOMI Neck: Supple, No JVD, No thyromegaly Lungs: Other (VERY DISTANT BS BILATERALLY) Heart: Other (MILD TACHYCARDIA ) Abdomen: Other (DECREASED BS NO REBOUND AND HAS BILATERA LOWER ABD PAIN ON PALPATION) Extremities: No clubbing, No cyanosis, No edema Skin: No rashes, No significant lesion Neuro: Normal speech, Normal tone, Other (GENERALIZED WEAKNESS) Psych/Mental Status: Mental status NL, Mood NL, Thoughts/Content NL Results RADIOLOGY: [] EKG: [] Laboratory Tests Test 05/17/25 14:28 05/17/25 17:30 05/17/25 19:16 05/17/25 22:14 Blood Gas Specimen Type Arterial Arterial Arterial Arterial Blood pH 7.218 (7.350-7.450) 7.168 (7.350-7.450) 7.178 (7.350-7.450) Arterial Blood Partial Pressure CO2 60 mmHg (32-45) *H 66 mmHg (32-45) *H 58 mmHg (32-45) H Arterial Blood Partial Pressure O2 87.1 mmHg (83.0-108.0) 106.7 mmHg (83.0-108.0) 87.3 mmHg (83.0-108.0) Arterial Blood HCO3 24.0 mmol/L (21.0-28.0) 23.5 mmol/L (21.0-28.0) 21.1 mmol/L (21.0-28.0) Arterial Blood Oxygen Saturation 94.6 % (94.0-98.0) 96.3 % (94.0-98.0) 95.7 % (94.0-98.0) Arterial Blood Base Excess -4.8 mmol/L (-2.0-3.0) L -6.4 mmol/L (-2.0-3.0) L -7.8 mmol/L (-2.0-3.0) L Blood Gas Temperature 37.0 CELSIUS (35.5-37.0) 37.0 CELSIUS (35.5-37.0) 37.0 CELSIUS (35.5-37.0) Blood Gas Vent Mode BIPAP 12-5 R 14 (ROOM AIR) BIPAP 12,6 (ROOM AIR) BIPAP 12,6 (ROOM AIR) FiO2 40.0 % 40.0 % 40.0 % Blood Gas Specimen Comment RR ECTOR KOROMA RR RN RR CRYSTALRN D-Dimer Quantitative (PE/DVT) 4839 ng/mL (0-500) *H Troponin I High Sensitivity 127 ng/L (4-50) *H B-Type Natriuretic Peptide 134 pg/mL (0-100) H Blood Gas Respiration Rate 18.0 min. 28.0 min. Hemoglobin (Blood Gas) 13.3 g/dL (12.0-16.0) Sodium (Blood Gas) 137 MMOL/L (136-145) Bedside Potassium (Blood Gas) 4.3 MMOL/L (3.4-4.5) Bedside Chloride (Blood Gas) 102 MMOL/L (98-107) Bedside Glucose (Blood Gas) 109 MG/DL (65-95) H Bedside Ionized Calcium (Blood Gas) 1.22 MMOL/L (1.15-1.33) Bedside Lactic Acid (Blood Gas) 1.20 MMOL/L (0.36-0.75) H Test 05/18/25 00:13 05/18/25 02:19 05/18/25 03:09 05/18/25 04:37 Blood Gas Specimen Type Arterial Arterial Blood pH 7.285 (7.350-7.450) Arterial Blood Partial Pressure CO2 66 mmHg (32-45) *H Arterial Blood Partial Pressure O2 74.2 mmHg (83.0-108.0) L Arterial Blood HCO3 30.5 mmol/L (21.0-28.0) H Arterial Blood Oxygen Saturation 92.8 % (94.0-98.0) L Arterial Blood Base Excess 1.9 mmol/L (-2.0-3.0) Blood Gas Temperature 37.0 CELSIUS (35.5-37.0) Blood Gas Respiration Rate 28.0 min. Blood Gas Vent Mode BIPAP 12,6 (ROOM AIR) FiO2 40.0 % Blood Gas Specimen Comment RR YVONNERN White Blood Count 14.4 K/uL (4.8-10.8) H Red Blood Count 3.43 MIL/uL (4.00-5.50) L Hemoglobin 10.3 g/dL (12.0-16.0) L Hematocrit 31.2 % (36-48) L Mean Corpuscular Volume 91.0 fL (79-99) Mean Corpuscular Hemoglobin 30.0 pg (27.0-33.0) Mean Corpuscular Hemoglobin Concent 33.0 g/dL (32.0-36.0) Red Cell Distribution Width 13.8 % (11.0-15.5) Platelet Count 315 K/uL (130-400) Mean Platelet Volume 9.9 fL (7.5-10.5) Nucleated Red Blood Cells 0.0 % (0.0-0.19) Troponin I High Sensitivity 183 ng/L (4-50) *H Sodium Level 143 mmol/L (136-145) Potassium Level 3.9 mmol/L (3.5-5.1) Chloride Level 100 mmol/L (101-111) L Carbon Dioxide Level 31 mmol/L (21-32) Blood Urea Nitrogen 68 mg/dL (7-18) H Creatinine 1.6 mg/dL (0.5-1.0) H Glomerular Filtration Rate Calc 32 mL/min (>90) Random Glucose 202 mg/dL (70-105) H Total Calcium 8.3 mg/dL (8.5-10.1) L Whole Blood Glucose 142 MG/DL (70-110) H Medications Current Medications Ceftriaxone Sodium 1 gm ONCE ONCE IVPB Last administered on 05/15/25at 09:33; Start 05/15/25 at 09:00; Stop 05/15/25 at 09:01; Status DC Albuterol 1 UDVIAL [id number] IH Last administered on 05/18/25at 06:30; Start 05/15/25 at 12:00; Stop 06/14/25 at 11:59 Albuterol Sulfate 1.25 [id number] PRN IH Last administered on 05/16/25at 02:29; Start 05/15/25 at 09:00; Stop 05/16/25 at 10:27; Status DC Hydralazine HCl 25 mg QID PRN PO; Start 05/15/25 at 09:00; Stop 05/15/25 at 09:35; Status DC Diltiazem HCl 10 mg Q6H6 IVP; Start 05/15/25 at 12:00; Stop 05/15/25 at 09:26; Status DC Enoxaparin Sodium 30 mg DAILY SQ Last administered on 05/18/25at 08:13; Start 05/15/25 at 09:00; Stop 06/14/25 at 08:59 Sodium Chloride 1,000 ml @ 100 mls/hr Q10H IV Last administered on 05/18/25at 08:13; Start 05/15/25 at 09:00; Stop 06/14/25 at 08:59 Morphine Sulfate 2 mg Q3H3 PRN IVP Last administered on 05/17/25at 10:03; Start 05/15/25 at 09:30; Stop 05/17/25 at 13:57; Status DC Morphine Sulfate 4 mg Q3H3 PRN IVP; Start 05/15/25 at 09:30; Stop 05/17/25 at 13:57; Status DC Diltiazem HCl 10 mg Q6H IVP Last administered on 05/15/25at 15:45; Start 05/15/25 at 09:30; Stop 05/15/25 at 17:27; Status DC Hydralazine HCl 25 mg Q6H PRN IV Last administered on 05/15/25at 11:32; Start 05/15/25 at 10:00; Stop 05/15/25 at 17:34; Status DC Ondansetron HCl 4 mg Q6H PRN IVP Last administered on 05/16/25at 19:12; Start 05/15/25 at 14:30; Stop 06/14/25 at 14:29 Benzocaine 1 SPRAY Q4PRN PRN TP Last administered on 05/16/25at 05:59; Start 05/15/25 at 14:30; Stop 05/16/25 at 10:27; Status DC Diltiazem HCl 10 mg TID IVP Last administered on 05/16/25at 13:22; Start 05/15/25 at 21:00; Stop 05/16/25 at 20:59; Status DC Acetaminophen 650 mg Q6H PRN PO; Start 05/15/25 at 17:30; Stop 06/14/25 at 17:29 Acetaminophen 650 mg Q4H PRN PO; Start 05/15/25 at 17:30; Stop 06/14/25 at 17:29 Al Hydroxide/Mg Hydroxide 30 ml Q6H PRN PO; Start 05/15/25 at 17:30; Stop 06/14/25 at 17:29 Famotidine 20 mg QODAY IV Last administered on 05/18/25at 08:13; Start 05/16/25 at 09:00; Stop 06/15/25 at 08:59 Dextrose 50 ml AD PRN IV; Start 05/15/25 at 17:30; Stop 06/14/25 at 17:29 Glucagon 1 mg AD PRN IM; Start 05/15/25 at 17:30; Stop 06/14/25 at 17:29 Potassium Chloride 100 ml @ 100 mls/hr AD PRN IV; Start 05/15/25 at 17:30; Stop 06/14/25 at 17:29 Potassium Chloride 20 meq AD PRN PO Last administered on 05/16/25at 20:08; Start 05/15/25 at 17:30; Stop 06/14/25 at 17:29 Potassium Chloride 20 meq AD PRN PO; Start 05/15/25 at 17:30; Stop 06/14/25 at 17:29 Potassium Chloride 100 ml @ 50 mls/hr AD PRN IV; Start 05/15/25 at 17:30; Stop 05/17/25 at 09:07; Status DC Magnesium Sulfate 50 ml @ 0 mls/hr PROTOCOL PRN IV; Start 05/15/25 at 17:30; Stop 05/17/25 at 09:07; Status DC Bisacodyl 10 mg ONCE ONCE RC Last administered on 05/15/25at 21:22; Start 05/15/25 at 21:00; Stop 05/15/25 at 21:01; Status DC Hydralazine HCl 10 mg Q4H4 PRN IV; Start 05/15/25 at 18:00; Stop 06/14/25 at 09:59 Labetalol HCl 10 mg Q4HPRN PRN IV Last administered on 05/16/25at 00:13; Start 05/15/25 at 22:00; Stop 06/14/25 at 21:59 Albuterol Sulfate 1.25 Q2HPRN PRN IH Last administered on 05/16/25at 16:54; Start 05/16/25 at 10:30; Stop 06/14/25 at 08:59 Benzocaine 1 SPRAY Q4PRN TP; Start 05/16/25 at 10:30; Stop 05/16/25 at 10:47; Status DC Benzocaine 50 MCG/ SPRAY Q2HPRN PRN TP; Start 05/16/25 at 10:30; Stop 06/15/25 at 10:29 Piperacillin Sod/ Tazobactam Sod 3.375 gm Q8H IV; Start 05/16/25 at 10:30; Stop 05/16/25 at 13:01; Status DC Benzocaine 1 SPRAY Q6H6 TP Last administered on 05/17/25at 05:58; Start 05/16/25 at 12:00; Stop 06/15/25 at 10:29 Piperacillin Sod/ Tazobactam Sod 3.375 gm Q8H IV Last administered on 05/17/25at 19:58; Start 05/16/25 at 13:00; Stop 05/18/25 at 02:26; Status DC Magnesium Sulfate 50 ml @ 0 mls/hr PROTOCOL PRN IV; Start 05/16/25 at 14:00; Stop 06/15/25 at 13:59 Ketorolac Tromethamine 15 mg Q6H PRN IV; Start 05/16/25 at 18:00; Stop 05/17/25 at 09:07; Status DC Metoprolol Tartrate 2.5 mg ONCE ONCE IV Last administered on 05/16/25at 23:45; Start 05/16/25 at 23:30; Stop 05/16/25 at 23:34; Status DC Hydromorphone HCl 0.5 mg Q6H PRN IVP Last administered on 05/18/25at 03:43; Start 05/17/25 at 14:00; Stop 05/22/25 at 13:59 Doxycycline Hyclate 250 ml @ 125 mls/hr Q12H IV Last administered on 05/17/25at 18:31; Start 05/17/25 at 18:00; Stop 05/18/25 at 02:26; Status DC Furosemide 20 mg ONCE ONCE IV; Start 05/17/25 at 20:00; Stop 05/17/25 at 20:01; Status DC Iohexol 35,000 mg STK-MED ONCE IV; Start 05/17/25 at 20:39; Stop 05/17/25 at 20:39; Status DC Sodium Bicarbonate 150 meq ONCE ONCE IV Last administered on 05/17/25at 22:44; Start 05/17/25 at 22:30; Stop 05/17/25 at 22:31; Status DC Sodium Bicarbonate 150 meq/Dextrose 1,150 ml @ 100 mls/hr [id number] IVP Last administered on 05/18/25at 08:14; Start 05/17/25 at 22:40; Stop 06/16/25 at 22:39 Vancomycin HCl 1 each AD IV; Start 05/18/25 at 02:30; Stop 06/01/25 at 02:29 Cefepime HCl 1 gm Q24H IVPB Last administered on 05/18/25at 02:59; Start 05/18/25 at 02:30; Stop 05/28/25 at 02:29 Metronidazole/ Sodium Chloride 500 mg Q8H IV Last administered on 05/18/25at 02:59; Start 05/18/25 at 03:00; Stop 05/28/25 at 02:59 Vancomycin HCl 750 mg Q24H IVPB Last administered on 05/18/25at 02:59; Start 05/18/25 at 03:00; Stop 05/28/25 at 02:59 Assessment/Plan RADIOLOGY : ABD PEL W - CT ABDOMEN/PELVIS W/CONTRAST 05/17/2025 FINDINGS: LUNG BASES: Atelectasis of the lung bases is present. LIVER: Unremarkable. GALLBLADDER AND BILE DUCTS: The gallbladder is hydropic. Follow-up with MRCP as clinically indicated. No calcified stone. No ductal dilation, except for the dilation of the pancreatic duct is observed, however this finding pertains to the pancreas. PANCREAS: Dilation of the pancreatic duct is observed. SPLEEN: Unremarkable. ADRENAL GLANDS: Unremarkable. KIDNEYS, URETERS, AND BLADDER: Bilateral renal cysts noted; follow-up with ultrasound is recommended. No hydronephrosis or nephrolithiasis. No ureteral or bladder calculi. The Mckeon catheter appears to be coiled in the vaginal vault and does not appear to be in the bladder; clinical correlation is needed. STOMACH AND BOWEL: Severe thickening of the entire colon suggests pancolitis. Edema of the loops of small bowel suggests moderate small bowel enteritis. A large amount of ascites in the abdomen and pelvis is seen. Foci of localized free air are seen, in the epigastric there is suggestion of perforated bowel which may involve the small bowel or a portion of the transverse colon; clinical correlation is advised. APPENDIX: No specific mention of the appendix. PERITONEUM: A large amount of ascites in the abdomen and pelvis is seen. Foci of localized free air are seen, in the epigastric there is suggestion of perforated bowel which may involve the small bowel or a portion of the transverse colon; clinical correlation is advised. Pneumoperitoneum is new compared to the prior CT abdomen and pelvis. LYMPH NODES: No lymphadenopathy. REPRODUCTIVE: The Mckeon catheter appears to be coiled in the vaginal vault and does not appear to be in the bladder; clinical correlation is needed. VASCULATURE: Atherosclerotic iliac bifurcation is seen. ABDOMINAL WALL AND SOFT TISSUES: A large amount of pericardium is seen, with findings suggesting a perforated bowel. Right hip arthroplasty is seen. BONES: Moderate degenerative changes in the lumbar spine are present. Multilevel chronic compression deformities are seen throughout the lumbar spine. No fracture or suspicious osseous abnormality. IMPRESSION: 1. Findings suggestive of perforated bowel, possibly involving the small bowel or transverse colon, with new pneumoperitoneum compared to prior CT. Clinical correlation is advised. 2. Severe thickening of the entire colon consistent with pancolitis. 3. Moderate small bowel enteritis. 4. Large amount of ascites. 5. Hydropic gallbladder. Follow-up with MRCP as clinically indicated. 6. Bilateral renal cysts. Follow-up with ultrasound is recommended. 7. Mckeon catheter appears to be coiled in the vaginal vault and does not appear to be in the bladder; clinical correlation is needed. [facility] PE - CT CHEST PE PROTOCOL WWO CONT 05/17/2025 FINDINGS: LUNGS: No pulmonary mass. Bilateral mucus plugging seen in the lower lobes. Mild emphysematous changes throughout the lung yanez. PLEURAL SPACES: Small right pleural effusion. No pneumothorax. HEART AND MEDIASTINUM: No cardiomegaly. No significant pericardial effusion. Atherosclerotic coronary artery disease. LYMPH NODES: No lymphadenopathy. CHEST WALL AND UPPER ABDOMEN: Extensive free air is seen in the upper abdomen. Ascites in the upper abdomen. Nasogastric tube in the esophagus. BONES: Moderate degenerative changes thoracic spine. No acute osseous abnormality. OTHER FINDINGS: Please also see CT abdomen and pelvis report negative for pulmonary embolism. IMPRESSION: 1. No evidence of pulmonary embolism. 2. Extensive free air in the upper abdomen. Ascites in the upper abdomen. Please also see CT ABD/PEL report. 3. Small right pleural effusion. 4. Bilateral mucus plugging in the lower lobes. 5. Mild emphysematous changes throughout the lung yanez. CXR1VW - CHEST 1VW FINDINGS: LUNGS: Haziness at right lower lung could be due to subsegmental atelectasis, however pneumonia in this region not excluded. Correlate clinically. PLEURAL SPACES: No evidence of pleural effusion or pneumothorax. MEDIASTINUM: The cardiomediastinal silhouette is within normal limits. BONES: No aggressive appearing osseous lesion seen. MISCELLANEOUS: Enteric tube is in stomach. IMPRESSION: 1. Haziness in right lower lung, possibly due to subsegmental atelectasis or pneumonia. Clinical correlation recommended. 2. Enteric tube in stomach. KUB 05/16/2025 FINDINGS BOWEL: Gaseous distension of the large bowel. PERITONEUM/SOFT TISSUES: No free air evident. There are a few tiny calcifications in the region of the pancreas. BONES: No acute osseous abnormality. IMPRESSION: Acute large bowel obstruction. Chronic calcific pancreatitis. As compared to the prior CT abdomen dated 05/15/2025, no interval change noted. CT ABDOMEN/PELVIS W/O CONTRAST - 05/15/2025 FINDINGS: LUNG BASES: The lung bases appear clear. No pleural effusions are seen. LIVER: Unremarkable. GALLBLADDER AND BILE DUCTS: The gallbladder appears within normal limits. No radioopaque gallstones are seen. No biliary ductal dilatation is evident. PANCREAS: Appears atrophic with dilated main pancreatic duct (measuring 5 mm) with diffuse intraparenchymal calcifications. SPLEEN: Unremarkable. ADRENAL GLANDS: Unremarkable. KIDNEYS, URETERS, AND BLADDER: Left renal cortical cyst measuring 2 x 2 cm in the interpolar region of left kidney. Right renal cortical cyst measuring 1.6 x 1.6 cm in the lower pole of right kidney. There is no hydronephrosis or hydroureter. No urinary calculi are seen. STOMACH AND BOWEL: Severe dilatation of the cecum, ascending colon, transverse colon and descending colon with gradual tapering at the sigmoid colon distended with fecal matter. PERITONEUM: Mild to moderate ascites . No free air. LYMPH NODES: No lymphadenopathy is evident. REPRODUCTIVE: Post hysterectomy status. VASCULATURE: No evidence of abdominal aortic aneurysm. Atherosclerotic intimal wall calcifications present involving abdominal aorta and its branches. BONES: No aggressive appearing osseous lesion. No acute osseous pathology neel dent. Scoliosis of the lumbar spine with convexity toward right. Moderate to severe lumbar spondylosis. Post-right total hip arthroplasty status. IMPRESSION: Severe dilatation of the cecum, ascending colon, transverse colon and descending colon with gradual tapering at the sigmoid colon, distended with fecal matter. Consistent with large bowel ileus versus distal obstruction. Suggested clinical correlation. Chronic calcific pancreatitis. Mild to moderate ascites. Bilateral renal cortical cysts. 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 HIP ARTHROPLASTY - 08/2018 SHE PRESENTED WITH AN ACUTE BOWEL OBSTRUCTION CONSTIPATION WITH FECAL IMPACTION CODE STATUS DNR/ DNI MILD URINARY RETENTION ACUTE ON CHRONIC HYPERCAPNIC AND HYPOXIC RESPIRATORY FAILURE BOWEL PERFORATION SEPSIS PLAN DISCUSSED WITH FAMILY FINDINGS OF CT RESULTS WITH PERFORATION PATIENT HAS REFUSED SURGICAL INTERVENTION AND FAMILY IN AGREEMENT THEY WANT COMFORT MEASURES TO START LATER TODAY INPATIENT [facility] CONSULTED CONTINUES WITH BIPAP CONTINUE IV ANALGESICS AND ANTI EMETICS NEEDED CONTINUE O2 AND BRONCHODILATORS WILL CANCEL ANY FURTHER LABS AND OR STUDIES AND TRANSITION INTO COMFORT MEASURES WHEN FAMILY READY DISCUSSED WITH 2 DAUGHTERS PRESENT AND ANSWERED ALL QUESTIONS EXTENSIVELY TO THEIR SATISFACTION ANASTACIO ABRAMS MD May 18, 2025 09:53
--- NOTE | 2025-05-18 10:05 | NUR ---
DCP; [facility] eval with [facility] [phone] spoke to pt's 2 daughters Terry and Gloria via phon regarding hospice. Both daughters have spoken to Dr Ramirez and are in agreement with hospice recommendation. Daughters gave verbal consent fo referral to [facility] as ordred by Dr Ramirez Referral made to Theodore and clinicals faxed to [facility] office. Eval pending
--- NOTE | 2025-05-18 10:52 | PN ---
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 SHE HAS BEEN HAVING PROBLEMS WITH CONSTIPATION FOR THE PAST WEEK WITHOUT RELIEF DESPITE MULTIPLE EFFORTS. SHE HAS BEEN USING OTC LAXATIVES WITH DULCOLAX AND COLACE WHICH DID NOT HELP AND THEN SHE WAS PRESCRIBED LACTULOSE BUT HAD STILL HAD A BOWEL MOVEMENT. SHE REPORTS HER ABDOMEN GOT VERY DISTENDED AND TENSE WITH WORSENING BILATERAL LOWER ABDOMINAL PAIN AND ASSOCIATED WITH NAUSEA AND VOMITING THAT PROMPTED HER TO GO TO THE ER FOR EVALUATION. SHE DENIED ANY FEVERS OR CHILLS, CHEST PAINS, INCREASED SOB OR PALPITATIONS. SHE RECENTLY FILLED OUT AN OUT OF HOSPITAL DNR IN OUR OFFICE AND REPORTS SHE WANTS TO CONTINUE CURRENT CODES STATUS AND PREFERS CONSERVATIVE MEASURES DUE TO HER AGE AND COMORBIDITIES Interval history: Patient has been seen and examined, all labs and imaging have been reviewed. Nursing reports: No acute events overnight. Lengthy discussion with family members, decision has been made to go ahead and keep DNR status and proceed with palliative Care, Plan: Family has decided to proceed with palliative Care, In the meantime we will keep the patient comfortable, Critical care will sign off at this time, thank you for allowing us to participate with the care of your patient. Please contact if needed. Code Status: DNR GI & DVT Prophylaxis REVIEW OF SYSTEMS: General: No malaise or fever. Neurological: + for anxiety overnight. HEENT: No nasal congestion or nasal secretion. Respiratory: No cough, shortness of breath, or wheezing Cardiac: No chest pain or palpitations. Gastrointestinal: No vomiting or diarrhea. Genitourinary: No dysuria hematuria. Skin: No rashes or lesions. Hematological: No bruises or bleeding. Musculoskeletal: No joint pains or arthralgias. Psychiatric: No depression or panic attacks. PHYSICAL EXAM: GENERAL: alert, weak, awake oriented x 3 HEENT: EOMI, Sclera non icteric, moist mucosa NECK: Supple, no JVD, trachea midline LUNGS: Clear breath sounds bilaterally. No wheezes HEART: Regular rate and rhythm. Normal S1 and S2, without murmurs ABD: Obese Abdomen soft, nontender. Bowel sounds present EXT: No clubbing cyanosis or edema. RT femoral IABP, no edema. Pedal pulse per Doppler on right foot, NEURO: Alert and oriented to person, follows commands PLAN GI & NUTRITION: Continue nutritional support Aspirations precautions Prokinetic agents and laxatives as needed KIDNEYS & ELECTROLYTES: Strict monitoring of intake and output NEURO: Minimize central acting medications as possible. Fall Precautions. Well lighted room through the day and minimize interruptions through the night to prevent acute delirium. PULMONARY: Supplemental 02 as needed Titrate Fio2 to keep Spo2 > or = 90% DuoNebs and CPT as needed CARDIOVASCULAR: Follow hemodynamics. Titrate vasopressor to keep MAP >65 or systolic blood pressure >95mmHg ENDOCRINE: Maintain blood glucose between 100-180 at all times. Insulin sliding scale for blood glucose management Renal: I&Os, Avoid nephrotoxic agents INFECTIOUS DISEASE: Trend temperature. Gilliland-culture if febrile. HEMATOLOGY & COAGULATION: Monitor H&H. Keep Hgb > 7 Transfuse 1 unit of PRBC for Hgb < 7 Watch for any signs and symptoms of bleeding SKIN: Pressure ulcer prevention per facility protocol Total time spent in the care of this patient greater than 40 minutes, this excludes any time spent on procedures teaching or education. ATTESTATION BY PHYSICIAN The patient has been seen and evaluated, the case has been discussed with the PA, I agree with the clinical findings and plan of care. Vitals/Labs Vital Signs Date Time Temp Pulse Resp B/P (MAP) Pulse Ox O2 Delivery O2 Flow Rate FiO2 05/18/25 09:39 117 32 40 05/18/25 08:00 97.3 118/63 95 BIPAP 05/17/25 07:10 3.0 Laboratory Tests 05/18/25 02:19 05/18/25 03:09 Medications Current Medications Ceftriaxone Sodium 1 gm ONCE ONCE IVPB Last administered on 05/15/25at 09:33; Start 05/15/25 at 09:00; Stop 05/15/25 at 09:01; Status DC Albuterol 1 UDVIAL [id number] IH Last administered on 05/18/25at 06:30; Start 05/15/25 at 12:00; Stop 06/14/25 at 11:59 Albuterol Sulfate 1.25 [id number] PRN IH Last administered on 05/16/25at 02:29; Start 05/15/25 at 09:00; Stop 05/16/25 at 10:27; Status DC Hydralazine HCl 25 mg QID PRN PO; Start 05/15/25 at 09:00; Stop 05/15/25 at 09:35; Status DC Diltiazem HCl 10 mg Q6H6 IVP; Start 05/15/25 at 12:00; Stop 05/15/25 at 09:26; Status DC Enoxaparin Sodium 30 mg DAILY SQ Last administered on 05/18/25at 08:13; Start 05/15/25 at 09:00; Stop 06/14/25 at 08:59 Sodium Chloride 1,000 ml @ 100 mls/hr Q10H IV Last administered on 05/18/25at 08:13; Start 05/15/25 at 09:00; Stop 06/14/25 at 08:59 Morphine Sulfate 2 mg Q3H3 PRN IVP Last administered on 05/17/25at 10:03; Start 05/15/25 at 09:30; Stop 05/17/25 at 13:57; Status DC Morphine Sulfate 4 mg Q3H3 PRN IVP; Start 05/15/25 at 09:30; Stop 05/17/25 at 13:57; Status DC Diltiazem HCl 10 mg Q6H IVP Last administered on 05/15/25at 15:45; Start 05/15/25 at 09:30; Stop 05/15/25 at 17:27; Status DC Hydralazine HCl 25 mg Q6H PRN IV Last administered on 05/15/25at 11:32; Start 05/15/25 at 10:00; Stop 05/15/25 at 17:34; Status DC Ondansetron HCl 4 mg Q6H PRN IVP Last administered on 05/16/25at 19:12; Start 05/15/25 at 14:30; Stop 06/14/25 at 14:29 Benzocaine 1 SPRAY Q4PRN PRN TP Last administered on 05/16/25at 05:59; Start 05/15/25 at 14:30; Stop 05/16/25 at 10:27; Status DC Diltiazem HCl 10 mg TID IVP Last administered on 05/16/25at 13:22; Start 05/15/25 at 21:00; Stop 05/16/25 at 20:59; Status DC Acetaminophen 650 mg Q6H PRN PO; Start 05/15/25 at 17:30; Stop 06/14/25 at 17:29 Acetaminophen 650 mg Q4H PRN PO; Start 05/15/25 at 17:30; Stop 06/14/25 at 17:29 Al Hydroxide/Mg Hydroxide 30 ml Q6H PRN PO; Start 05/15/25 at 17:30; Stop 06/14/25 at 17:29 Famotidine 20 mg QODAY IV Last administered on 05/18/25at 08:13; Start 05/16/25 at 09:00; Stop 06/15/25 at 08:59 Dextrose 50 ml AD PRN IV; Start 05/15/25 at 17:30; Stop 06/14/25 at 17:29 Glucagon 1 mg AD PRN IM; Start 05/15/25 at 17:30; Stop 06/14/25 at 17:29 Potassium Chloride 100 ml @ 100 mls/hr AD PRN IV; Start 05/15/25 at 17:30; Stop 06/14/25 at 17:29 Potassium Chloride 20 meq AD PRN PO Last administered on 05/16/25at 20:08; Start 05/15/25 at 17:30; Stop 06/14/25 at 17:29 Potassium Chloride 20 meq AD PRN PO; Start 05/15/25 at 17:30; Stop 06/14/25 at 17:29 Potassium Chloride 100 ml @ 50 mls/hr AD PRN IV; Start 05/15/25 at 17:30; Stop 05/17/25 at 09:07; Status DC Magnesium Sulfate 50 ml @ 0 mls/hr PROTOCOL PRN IV; Start 05/15/25 at 17:30; Stop 05/17/25 at 09:07; Status DC Bisacodyl 10 mg ONCE ONCE RC Last administered on 05/15/25at 21:22; Start 05/15/25 at 21:00; Stop 05/15/25 at 21:01; Status DC Hydralazine HCl 10 mg Q4H4 PRN IV; Start 05/15/25 at 18:00; Stop 06/14/25 at 09:59 Labetalol HCl 10 mg Q4HPRN PRN IV Last administered on 05/16/25at 00:13; Start 05/15/25 at 22:00; Stop 06/14/25 at 21:59 Albuterol Sulfate 1.25 Q2HPRN PRN IH Last administered on 05/16/25at 16:54; Start 05/16/25 at 10:30; Stop 06/14/25 at 08:59 Benzocaine 1 SPRAY Q4PRN TP; Start 05/16/25 at 10:30; Stop 05/16/25 at 10:47; Status DC Benzocaine 50 MCG/ SPRAY Q2HPRN PRN TP; Start 05/16/25 at 10:30; Stop 06/15/25 at 10:29 Piperacillin Sod/ Tazobactam Sod 3.375 gm Q8H IV; Start 05/16/25 at 10:30; Stop 05/16/25 at 13:01; Status DC Benzocaine 1 SPRAY Q6H6 TP Last administered on 05/17/25at 05:58; Start 05/16/25 at 12:00; Stop 06/15/25 at 10:29 Piperacillin Sod/ Tazobactam Sod 3.375 gm Q8H IV Last administered on 05/17/25at 19:58; Start 05/16/25 at 13:00; Stop 05/18/25 at 02:26; Status DC Magnesium Sulfate 50 ml @ 0 mls/hr PROTOCOL PRN IV; Start 05/16/25 at 14:00; Stop 06/15/25 at 13:59 Ketorolac Tromethamine 15 mg Q6H PRN IV; Start 05/16/25 at 18:00; Stop 05/17/25 at 09:07; Status DC Metoprolol Tartrate 2.5 mg ONCE ONCE IV Last administered on 05/16/25at 23:45; Start 05/16/25 at 23:30; Stop 05/16/25 at 23:34; Status DC Hydromorphone HCl 0.5 mg Q6H PRN IVP Last administered on 05/18/25at 03:43; Start 05/17/25 at 14:00; Stop 05/22/25 at 13:59 Doxycycline Hyclate 250 ml @ 125 mls/hr Q12H IV Last administered on 05/17/25at 18:31; Start 05/17/25 at 18:00; Stop 05/18/25 at 02:26; Status DC Furosemide 20 mg ONCE ONCE IV; Start 05/17/25 at 20:00; Stop 05/17/25 at 20:01; Status DC Iohexol 35,000 mg STK-MED ONCE IV; Start 05/17/25 at 20:39; Stop 05/17/25 at 20:39; Status DC Sodium Bicarbonate 150 meq ONCE ONCE IV Last administered on 05/17/25at 22:44; Start 05/17/25 at 22:30; Stop 05/17/25 at 22:31; Status DC Sodium Bicarbonate 150 meq/Dextrose 1,150 ml @ 100 mls/hr [id number] IVP Last administered on 05/18/25at 08:14; Start 05/17/25 at 22:40; Stop 06/16/25 at 22:39 Vancomycin HCl 1 each AD IV; Start 05/18/25 at 02:30; Stop 06/01/25 at 02:29 Cefepime HCl 1 gm Q24H IVPB Last administered on 05/18/25at 02:59; Start 05/18/25 at 02:30; Stop 05/28/25 at 02:29 Metronidazole/ Sodium Chloride 500 mg Q8H IV Last administered on 05/18/25at 02:59; Start 05/18/25 at 03:00; Stop 05/28/25 at 02:59 Vancomycin HCl 750 mg Q24H IVPB Last administered on 05/18/25at 02:59; Start 05/18/25 at 03:00; Stop 05/28/25 at 02:59 SANJAY WILLIAM May 18, 2025 10:52
--- NOTE | 2025-05-18 13:25 | NUR ---
JOLLY VELASQUEZ DAUGHTER AT BEDSIDE. SIGNED FOR WITHDRAW OF LIFE SUPPORT. DR ABRAMS MADE AWARE AND STATED WILL ENTER ORDERS FOR COMFORT MEASURES. JOLLY REQUESTS THAT WE WAIT TO ADMINISTER ANY ANALGESICS UNTIL DAUGHTER MIGUEL ANGEL IS AT BEDSIDE. NOTE HUMAN [employer]OURCES OPERATIONS MANAGER CAME TO BEDSIDE FOR LAST RITES REQUESTED BY FAMILY.
--- NOTE | 2025-05-18 15:27 | NUR ---
per orders comfort measures initiated. ngt discontinued. placed on 2lnc.
--- NOTE | 2025-05-18 15:42 | NUR ---
NANI: SPOKE WITH AMAYA- . PER AMAYA TO CALL BACK WITH TIME OF .
--- NOTE | 2025-05-18 18:35 | DS ---
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 > 50% 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 LIVER: Unremarkable. GALLBLADDER AND BILE DUCTS: The gallbladder is hydropic. Follow-up with MRCP as clinically indicated. No calcified stone. No ductal dilation, except for the dilation of the pancreatic duct is observed, however this finding pertains to the pancreas. PANCREAS: Dilation of the pancreatic duct is observed. SPLEEN: Unremarkable. ADRENAL GLANDS: Unremarkable. KIDNEYS, URETERS, AND BLADDER: Bilateral renal cysts noted; follow-up with ultrasound is recommended. No hydronephrosis or nephrolithiasis. No ureteral or bladder calculi. The Mckeon catheter appears to be coiled in the vaginal vault and does not appear to be in the bladder; clinical correlation is needed. STOMACH AND BOWEL: Severe thickening of the entire colon suggests pancolitis. Edema of the loops of small bowel suggests moderate small bowel enteritis. A large amount of ascites in the abdomen and pelvis is seen. Foci of localized free air are seen, in the epigastric there is suggestion of perforated bowel which may involve the small bowel or a portion of the transverse colon; clinical correlation is advised. APPENDIX: No specific mention of the appendix. PERITONEUM: A large amount of ascites in the abdomen and pelvis is seen. Foci of localized free air are seen, in the epigastric there is suggestion of perforated bowel which may involve the small bowel or a portion of the transverse colon; clinical correlation is advised. Pneumoperitoneum is new compared to the prior CT abdomen and pelvis. LYMPH NODES: No lymphadenopathy. REPRODUCTIVE: The Mckeon catheter appears to be coiled in the vaginal vault and does not appear to be in the bladder; clinical correlation is needed. VASCULATURE: Atherosclerotic iliac bifurcation is seen. ABDOMINAL WALL AND SOFT TISSUES: A large amount of pericardium is seen, with findings suggesting a perforated bowel. Right hip arthroplasty is seen. BONES: Moderate degenerative changes in the lumbar spine are present. Multilevel chronic compression deformities are seen throughout the lumbar spine. No fracture or suspicious osseous abnormality. IMPRESSION: 1. Findings suggestive of perforated bowel, possibly involving the small bowel or transverse colon, with new pneumoperitoneum compared to prior CT. Clinical correlation is advised. 2. Severe thickening of the entire colon consistent with pancolitis. 3. Moderate small bowel enteritis. 4. Large amount of ascites. 5. Hydropic gallbladder. Follow-up with MRCP as clinically indicated. 6. Bilateral renal cysts. Follow-up with ultrasound is recommended. 7. Mckeon catheter appears to be coiled in the vaginal vault and does not appear to be in the bladder; clinical correlation is needed. [facility] PE - CT CHEST PE PROTOCOL WWO CONT 05/17/2025 FINDINGS: LUNGS: No pulmonary mass. Bilateral mucus plugging seen in the lower lobes. Mild emphysematous changes throughout the lung yanez. PLEURAL SPACES: Small right pleural effusion. No pneumothorax. HEART AND MEDIASTINUM: No cardiomegaly. No significant pericardial effusion. Atherosclerotic coronary artery disease. LYMPH NODES: No lymphadenopathy. CHEST WALL AND UPPER ABDOMEN: Extensive free air is seen in the upper abdomen. Ascites in the upper abdomen. Nasogastric tube in the esophagus. BONES: Moderate degenerative changes thoracic spine. No acute osseous abnormality. OTHER FINDINGS: Please also see CT abdomen and pelvis report negative for pulmonary embolism. IMPRESSION: 1. No evidence of pulmonary embolism. 2. Extensive free air in the upper abdomen. Ascites in the upper abdomen. Please also see CT ABD/PEL report. 3. Small right pleural effusion. 4. Bilateral mucus plugging in the lower lobes. 5. Mild emphysematous changes throughout the lung yanez. CXR1VW - CHEST 1VW FINDINGS: LUNGS: Haziness at right lower lung could be due to subsegmental atelectasis, however pneumonia in this region not excluded. Correlate clinically. PLEURAL SPACES: No evidence of pleural effusion or pneumothorax. MEDIASTINUM: The cardiomediastinal silhouette is within normal limits. BONES: No aggressive appearing osseous lesion seen. MISCELLANEOUS: Enteric tube is in stomach. IMPRESSION: 1. Haziness in right lower lung, possibly due to subsegmental atelectasis or pneumonia. Clinical correlation recommended. 2. Enteric tube in stomach. KUB 05/16/2025 FINDINGS BOWEL: Gaseous distension of the large bowel. PERITONEUM/SOFT TISSUES: No free air evident. There are a few tiny calcifications in the region of the pancreas. BONES: No acute osseous abnormality. IMPRESSION: Acute large bowel obstruction. Chronic calcific pancreatitis. As compared to the prior CT abdomen dated 05/15/2025, no interval change noted. CT ABDOMEN/PELVIS W/O CONTRAST - 05/15/2025 FINDINGS: LUNG BASES: The lung bases appear clear. No pleural effusions are seen. LIVER: Unremarkable. GALLBLADDER AND BILE DUCTS: The gallbladder appears within normal limits. No radioopaque gallstones are seen. No biliary ductal dilatation is evident. PANCREAS: Appears atrophic with dilated main pancreatic duct (measuring 5 mm) with diffuse intraparenchymal calcifications. SPLEEN: Unremarkable. ADRENAL GLANDS: Unremarkable. KIDNEYS, URETERS, AND BLADDER: Left renal cortical cyst measuring 2 x 2 cm in the interpolar region of left kidney. Right renal cortical cyst measuring 1.6 x 1.6 cm in the lower pole of right kidney. There is no hydronephrosis or hydroureter. No urinary calculi are seen. STOMACH AND BOWEL: Severe dilatation of the cecum, ascending colon, transverse colon and descending colon with gradual tapering at the sigmoid colon distended with fecal matter. PERITONEUM: Mild to moderate ascites . No free air. LYMPH NODES: No lymphadenopathy is evident. REPRODUCTIVE: Post hysterectomy status. VASCULATURE: No evidence of abdominal aortic aneurysm. Atherosclerotic intimal wall calcifications present involving abdominal aorta and its branches. BONES: No aggressive appearing osseous lesion. No acute osseous pathology evident. Scoliosis of the lumbar spine with convexity toward right. Moderate to severe lumbar spondylosis. Post-right total hip arthroplasty status. IMPRESSION: Severe dilatation of the cecum, ascending colon, transverse colon and descending colon with gradual tapering at the sigmoid colon, distended with fecal matter. Consistent with large bowel ileus versus distal obstruction. Suggested clinical correlation. Chronic calcific pancreatitis. Mild to moderate ascites. Bilateral renal cortical cysts. HOSPITAL COURSE: THIS IS A 85 YR OLD WOMAN WITH A ABOVE PMH WHO PRESENTED WITH ABDOMINAL PAIN AND DEVELOPED ACUTE SYSTEMIC SEPSIS DUE TO ACUTE LARGE BOWEL OBSTRUCTION PROGRESSING TO AND INTESTINAL PERFORATION WITH PANCOLITIS AND PNEUMOPERITONEUM, SHE WAS EVALUATED WITH GNS BUT WAS NOT A SURGICAL CANDIDATE AND THE PATIENT ALSO REFUSED SURGERY WELL DUE TO HER AGE AND CO- MORBID PROBLEMS. SHE CONTINUED TO DETERIORATE AND DEVELOPED MAURICIO WITH URINARY RETENTION, PROGRESSIVE RENAL FAILURE, HAD AN ACUTE COPD EXACERBATION WITH ACUTE ON CHRONIC HYPERCAPNIC AND HYPOXIC RESPIRATORY FAILURE REQUIRING BIPAP WITH ACUTE RESPIRATORY ACIDOSIS. SHE SOON DEVELOPED NSTEMI DUE TU DEMAND ISCHEMIA AND METABOLIC ENCEPHALOPATHY DUE TO HYPOXIA. HER CODE STATUS WAS ADDRESSED ON ADMISSION AND WAS A DNR/DNI AND WITH HER DETERIORATING STATUS THE FAMILY REQUESTED COMFORT MEASURES AND SHE WAS TRANSITIONED INTO INPATIENT HOSPICE WITH [facility]. DIET: NPO ACTIVITY: BED REST CONDITION: TERMINAL EQUIPMENT: NONE FOLLOW UP APPOINTMENT(S): PRN DISPOSITION: INPATIENT HOSPICE WITH [facility] CODE STATUS: DNR/DNI MEDICATION RECONCILIATION : Home Medications were reconciled with hospital medications upon discharge and discussed with patient and/or responsible republican. TRANSITIONED INTO INPATIENT COMFORT MEDS WITH [facility] ^ Home Meds Active Scripts Tramadol Hcl (Tramadol HCl) 50 Mg Tablet, 50 MG PO Q6HPRN PRN for PAIN LEVEL 6 TO 10, #30 TAB Prov:MARTHA RAMIREZ MD 05/16/25 Pantoprazole Sodium (Pantoprazole Sodium) 40 Mg Tablet.dr, 1 TAB PO DAILY for 30 Days, #30 TAB 0 Refills Prov:MARTHA RAMIREZ MD 05/16/25 Lactulose (Lactulose) 10 Gram/15 Ml Solution, 30 ML PO BID for constipation, #500 ML 0 Refills Prov:MARTHA RAMIREZ MD 05/16/25 Ipratropium/Albuterol Sulfate (Iprat-Albut 0.5-3(2.5) mg/3 ml) 3 Ml Ampul.neb, 3 ML IH [id number], #90 DAYS Prov:MARTHA RAMIREZ MD 01/02/23 Levothyroxine Sodium (Levothyroxine Sodium) 25 Mcg Tablet, 25 MCG PO DAILY, #90 TAB Prov:MARTHA RAMIREZ MD 01/02/23 Albuterol Sulfate (Proventil Hfa) 6.7 Gm Hfa.aer.ad, 2 PUFF IH Q4PRN PRN for SHORTNESS OF BREATH/WHEEZING, #7 INHALER Prov:MARTHA RAMIREZ MD 01/02/23 Reported Medications Budesonide/Glycopyr/Formoterol (Breztri Aerosphere Inhaler) 160 Mcg-9 Mcg-4.8 Mcg/Actuation Hfa.aer.ad, 2 PUFF IH BID for 30 Days, #10.7 GM 0 Refills 05/15/25 Diltiazem HCl (Diltiazem HCl) 120 Mg Tablet, 120 MG PO BID, TAB 05/15/25 Aspirin (Aspirin EC) 81 Mg Tablet.dr, 81 MG PO DAILY, TAB 05/15/25 Atorvastatin Calcium (Atorvastatin Calcium) 40 Mg Tablet, 40 MG PO DAILY, TAB 05/15/25 Clopidogrel Bisulfate (Clopidogrel) 75 Mg Tablet, 75 MG PO DAILY, TAB 05/15/25 Discontinued Reported Medications Budesonide/Formoterol Fumarate (Symbicort 160-4.5 Mcg Inhaler) 10.2 Gm Hfa.aer.ad, 2 PUFF IH BID 08/19/18 Discontinued Scripts Linezolid (Zyvox) 600 Mg Tablet, 600 MG PO BID, #20 TAB 1 Refill Prov:MARTHA RAMIREZ MD 09/29/23 Levofloxacin (Levofloxacin) 500 Mg Tablet, 500 MG PO DAILY, #10 TAB Prov:MARTHA RAMIREZ MD 09/29/23 Prednisone (Prednisone) 10 Mg Tablet, 40 MG PO DAILYBKFST, #50 TAB 0 Refills 4 TABS DAILY X 5 DAYS 3 TABS DAILY X 5 DAYS 2 TABS DALIY X 5 DAYS 1 TAB DAILY X 5 DAYS THEN STOP TAKE WITH FOOD IN AM Prov:MARTHA RAMIREZ MD 09/29/23 Pantoprazole Sodium (Pantoprazole Sodium) 40 Mg Granpkt.dr, 40 MG PO BID, #60 PACK 1 Refill Prov:MARTHA RAMIREZ MD 09/29/23 Potassium Chloride (Potassium Chloride) 20 Meq Tab.er.prt, 20 MEQ PO BID, #60 TAB 1 Refill Prov:MARTHA RAMIREZ MD 09/29/23 Furosemide (Lasix 40Mg Tab) 40 Mg Tablet, 40 MG PO BID, #60 TAB 1 Refill Prov:MARTHA RAMIREZ MD 09/29/23 Diltiazem HCl (Diltiazem HCl 30 mg Tab) 30 Mg Tab, 30 MG PO DAILYLUNCH, #90 TAB Prov:MARTHA RAMIREZ MD 09/24/23 Diltiazem HCl (Diltiazem 24Hr ER) 180 Mg Cap.er.24h, 180 MG PO BID, #[address] Prov:MARTHA RAMIREZ MD 09/24/23 Rosuvastatin Calcium (Rosuvastatin Calcium) 5 Mg Tablet, 5 MG PO HS, #90 TAB Prov:MARTHA RAMIREZ MD 09/24/23 MARTHA RAMIREZ MD May 18, 2025 18:35
[2025-05-20 15:14] LABS: CHLAM.PNEUMONIAE IGM TITER <1:10 (Neg:<1:10)
== END 2025-05-18 15:39 | disposition hospice, inpatient (51) | DRG 871 ==
LOC: EDH 06:08 → EDHIP 08:48 → 4CH 11:09 → 2DH 05-16 10:45 → 2BH 05-17 23:55
PROVIDERS: ADMIT Internal Medicine; ATTEND Internal Medicine
DX: A41.9 Sepsis, unspecified organism (principal); G93.41 Metabolic encephalopathy; I21.A1 Myocardial infarction type 2; J96.22 Acute and chronic respiratory failure with hypercapnia; J96.21 Acute and chronic respiratory failure with hypoxia; K63.1 Perforation of intestine (nontraumatic); J18.9 Pneumonia, unspecified organism; K56.609 Unspecified intestinal obstruction, unspecified as to partial versus complete obstruction; I47.10 Supraventricular tachycardia, unspecified; I50.32 Chronic diastolic (congestive) heart failure; K56.699 Other intestinal obstruction unspecified as to partial versus complete obstruction; J44.1 Chronic obstructive pulmonary disease with (acute) exacerbation; K86.1 Other chronic pancreatitis; N17.9 Acute kidney failure, unspecified; R18.8 Other ascites; Z66 Do not resuscitate; E03.9 Hypothyroidism, unspecified; E88.810 Metabolic syndrome; I25.10 Atherosclerotic heart disease of native coronary artery without angina pectoris; K21.9 Gastro-esophageal reflux disease without esophagitis; K56.41 Fecal impaction; M47.816 Spondylosis without myelopathy or radiculopathy, lumbar region; E78.2 Mixed hyperlipidemia; M81.0 Age-related osteoporosis without current pathological fracture; I11.0 Hypertensive heart disease with heart failure; Z96.641 Presence of right artificial hip joint; K52.9 Noninfective gastroenteritis and colitis, unspecified; T46.6X5A Adverse effect of antihyperlipidemic and antiarteriosclerotic drugs, initial encounter; E86.0 Dehydration; I48.91 Unspecified atrial fibrillation; N28.1 Cyst of kidney, acquired; G89.29 Other chronic pain; M48.061 Spinal stenosis, lumbar region without neurogenic claudication; Z90.49 Acquired absence of other specified parts of digestive tract; Z90.12 Acquired absence of left breast and nipple; Z99.81 Dependence on supplemental oxygen; Y92.89 Other specified places as the place of occurrence of the external cause; Z79.02 Long term (current) use of antithrombotics/antiplatelets; Z79.51 Long term (current) use of inhaled steroids; Z82.49 Family history of ischemic heart disease and other diseases of the circulatory system; Z85.3 Personal history of malignant neoplasm of breast; Z87.891 Personal history of nicotine dependence; Z90.710 Acquired absence of both cervix and uterus; Z79.899 Other long term (current) drug therapy
CPT/HCPCS: 36415; 36600; 71045; 71270; 74018; 74176; 74177; 80048; 80076; 81001; 82435; 82803; 82947; 82948; 83605; 83690; 83735; 83880; 84132; 84295; 84484; 85018; 85025; 85027; 85378; 86632; 87040; 93005; 94640; 94660; 94664; 99285; G0378; J0360; J0692; J0696; J1171; J1650; J2270; J2405; J2543; J3490; J7070; Q9967; J3370

== ENCOUNTER 2025-05-18 15:40 | Inpatient (IN) | payer OTHER ==
[~2025-05-18] VITALS: Ht 162.6 cm; Wt 47.2 kg
[~2025-05-18 15:40] MED LIST changes: +ASPI-1443 PO; +ATOR40TA71 PO; +BUDE10.7 IH; +CLOP75TA32 PO; +DILT120T PO; +LACT-441 PO; +PANT40TA54 PO; +TRAM50TA4 PO
[2025-05-18 16:00] VITALS: BP 85/56; PULSE 132; RESP 25; TEMP 97.1; O2SAT 95
--- NOTE | 2025-05-18 16:56 | HP ---
HISTORY AND PHYSICAL Date of Visit: May 18, 2025 Time of Visit: 16:56 ADMISSION DATE: May 18, 2025 at 15:40 CC: FAILURE TO THRIVE HPI: THIS IS A 85 YR OLD WOMAN WITH A ABOVE PMH WHO PRESENTED WITH ABDOMINAL PAIN AND DEVELOPED ACUTE SYSTEMIC SEPSIS DUE TO ACUTE LARGE BOWEL OBSTRUCTION PROGRESSING TO AND INTESTINAL PERFORATION WITH PANCOLITIS AND PNEUMOPERITONEUM, SHE WAS EVALUATED WITH GNS BUT WAS NOT A SURGICAL CANDIDATE AND THE PATIENT ALSO REFUSED SURGERY WELL DUE TO HER AGE AND CO- MORBID PROBLEMS. SHE CONTINUED TO DETERIORATE AND DEVELOPED MAURICIO WITH URINARY RETENTION, PROGRESSIVE RENAL FAILURE, HAD AN ACUTE COPD EXACERBATION WITH ACUTE ON CHRONIC HYPERCAPNIC AND HYPOXIC RESPIRATORY FAILURE REQUIRING BIPAP WITH ACUTE RESPIRATORY ACIDOSIS. SHE SOON DEVELOPED NSTEMI DUE TU DEMAND ISCHEMIA AND METABOLIC ENCEPHALOPATHY DUE TO HYPOXIA. HER CODE STATUS WAS ADDRESSED ON ADMISSION AND WAS A DNR/DNI AND WITH HER DETERIORATING STATUS THE FAMILY REQUESTED COMFORT MEASURES AND SHE WAS TRANSITIONED INTO INPATIENT HOSPICE WITH [facility]. 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 WITH A RIGHT TOTAL HIP ARTHROPLASTY - 08/2018 SOCIAL HISTORY: EX SMOKER, LIVES LOCALLY NO CURRENT ALCOHOL OR DRUG ABUSE FAMILY HISTORY: Patient History: Carcinomas MOTHER Cardiovascular disease FATHER Hypertension FATHER * Allergies: Coded Allergies: No Known Drug Allergies (Unverified Allergy, Unknown, 08/19/18) * Patient History: Carcinomas MOTHER Cardiovascular disease FATHER Hypertension FATHER Allergies: Coded Allergies: No Known Drug Allergies (Unverified Allergy, Unknown, 08/19/18) Discontinued Medications Albuterol Sulfate (Proventil Hfa), 2 PUFF IH Q4PRN PRN for SHORTNESS OF BREATH/WHEEZING Aspirin (Aspirin EC), 81 MG PO DAILY, (Reported) Atorvastatin Calcium (Atorvastatin Calcium), 40 MG PO DAILY, (Reported) Budesonide/Formoterol Fumarate (Symbicort 160-4.5 Mcg Inhaler), 2 PUFF IH BID, (Reported) Budesonide/Glycopyr/Formoterol (Breztri Aerosphere Inhaler), 2 PUFF IH BID, (Reported) Clopidogrel Bisulfate (Clopidogrel), 75 MG PO DAILY, (Reported) Diltiazem HCl (Diltiazem 24Hr ER), 180 MG PO BID Diltiazem HCl (Diltiazem HCl 30 mg Tab), 30 MG PO DAILYLUNCH Diltiazem HCl (Diltiazem HCl), 120 MG PO BID, (Reported) Furosemide (Lasix 40Mg Tab), 40 MG PO BID Ipratropium/Albuterol Sulfate (Iprat-Albut 0.5-3(2.5) mg/3 ml), 3 ML IH [id number] Lactulose (Lactulose), 30 ML PO BID Levofloxacin (Levofloxacin), 500 MG PO DAILY Levothyroxine Sodium (Levothyroxine Sodium), 25 MCG PO DAILY Linezolid (Zyvox), 600 MG PO BID Pantoprazole Sodium (Pantoprazole Sodium), 40 MG PO BID Pantoprazole Sodium (Pantoprazole Sodium), 1 TAB PO DAILY Potassium Chloride (Potassium Chloride), 20 MEQ PO BID Prednisone (Prednisone), 40 MG PO DAILYBKFST Rosuvastatin Calcium (Rosuvastatin Calcium), 5 MG PO HS Tramadol Hcl (Tramadol HCl), 50 MG PO Q6HPRN PRN for PAIN LEVEL 6 TO 10 Review of Systems Normal Eyes:, Normal Ear/Nose/Mouth/Throat, Normal Cardiovascular:, Normal Respiratory:, Normal Genitourinary:, Normal Integumentary:, Normal Musculoskeletal:; Abnormal Constitutional: (GENERALIZED WEAKNESS), Abnormal Gastrointestinal: (ABDOMINAL PAIN), Abnormal Neurological: (DECREASED LOC) Additional ROS POOR HISTORIAN AND HISTORY PER FAMILY AND MEDICAL STAFF Physical Exam Appearance: Other (DECREASED LOC) Eyes: Clear Ear/Nose/Mouth/Throat: Abnormal (DRY ORAL MUCOSA) Neck: Symmetric, trach midline Cardiovascular: Regular Rate, Regular Rhythm, Abnormal (TACHYCARDIA) Respiratory: Abnormal (MODERATE RESPIRATORY DISTRESS) G.I.: Abnormal (NO BS) Musculoskeletal: Abnormal (BED RIDDEN) Neurology: Abnormal (NOT RESPONSIVE) Psychology: Abnormal (LETHARGIC AND UNRESPONSIVE) Assessment/Plan Assessment/Plan ASSESSMENT: THIS IS AN 85 YR OLD WOMAN WITH HISTORY OF SYSTEMIC SEPSIS DUE TO ACUTE LARGE BOWEL OBSTRUCTION PROGRESSING TO INTESTINAL PERFORATION WITH PANCOLITIS PNEUMOPERITONEUM MAURICIO WITH URINARY RETENTION AND PROGRESSIVE RENAL FAILURE ACUTE COPD EXACERBATION ACUTE ON CHRONIC HYPERCAPNIC AND HYPOXIC RESPIRATORY FAILURE REQUIRING BIPAP ACUTE RESPIRATORY ACIDOSIS NSTEMI DUE TU DEMAND ISCHEMIA METABOLIC ENCEPHALOPATHY DUE TO HYPOXIA 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 DIASTOLIC CHF EF > 50% COPD WITH CHRONIC RESPIRATORY FAILURE ON HOME O2 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 - DR SU 10/2013 AND A LEFT CAROTID STENT - 12/2013 BMI < 20 EX SMOKER - QUIT 07/08/2013 HX BREAST CA DX 2002- COMPLETED 5 YEARS OF ANASTROZOLE WITH DR CURTIS ALLERGIC RHINITIS GERD METABOLIC SYNDROME MIXED LIPIDS WITH STATIN MYOPATHY HYPOTHYROID OSTEOPOROSIS NEUROGENIC CLAUDICATION - LUMBAR MRI 08/2015 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
[2025-05-18] MEDS ORDERED: GLYCOPYRROLATE 0.2 MG/ML 5 ML VIAL IVP PRN (17:00)
[2025-05-18 20:00] VITALS: BP 55/27; PULSE 90; RESP 19
--- NOTE | 2025-05-18 22:46 | NUR ---
Family at bedside nutritional yeast supervisor pronounced TOD [id number] NANI called with TOD at 2240 Dr. Ramirez notified of TOD at 2246 post mortem care done and patient transferred to [facility]. security called to pickle solution maker patient and take to [facility] [place]. [facility] notified of TOD [id number]
--- NOTE | 2025-05-19 08:25 | DS ---
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 > 50% COPD WITH CHRONIC RESPIRATORY FAILURE ON HOME O2 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 - DR SU 10/2013 AND A LEFT CAROTID STENT - 12/2013 BMI < 20 EX SMOKER - QUIT 07/08/2013 HX BREAST CA DX 2002- COMPLETED 5 YEARS OF ANASTROZOLE WITH DR CURTIS ALLERGIC RHINITIS GERD METABOLIC SYNDROME MIXED LIPIDS WITH STATIN MYOPATHY HYPOTHYROID OSTEOPOROSIS NEUROGENIC CLAUDICATION - LUMBAR MRI 08/2015 LUMBAR SPONDYLOSIS - DR JIMENEZ DJMadai WITH A RIGHT TOTAL HIP ARTHROPLASTY - 08/2018 CALL OUT CLERK(S): NONE PROCEDURES: NONE RADIOLOGY: NON HOSPITAL COURSE: THIS WAS A 85 YR OLD WOMAN WITH A ABOVE PMH WHO PRESENTED WITH ABDOMINAL PAIN AND DEVELOPED ACUTE SYSTEMIC SEPSIS DUE TO ACUTE LARGE BOWEL OBSTRUCTION PROGRESSING TO AN INTESTINAL PERFORATION WITH PANCOLITIS AND PNEUMOPERITONEUM, SHE WAS EVALUATED WITH GNS BUT WAS NOT A SURGICAL CANDIDATE AND THE PATIENT ALSO REFUSED SURGERY WELL DUE TO HER AGE AND CO- MORBID PROBLEMS. SHE CONTINUED TO DETERIORATE AND DEVELOPED MAURICIO WITH URINARY RETENTION, PROGRESSIVE RENAL FAILURE, AN ACUTE COPD EXACERBATION WITH ACUTE ON CHRONIC HYPERCAPNIC AND HYPOXIC RESPIRATORY FAILURE REQUIRING BIPAP WITH ACUTE RESPIRATORY ACIDOSIS. SHE SOON DEVELOPED NSTEMI DUE TO DEMAND ISCHEMIA AND METABOLIC ENCEPHALOPATHY DUE TO HYPOXIA. HER CODE STATUS WAS ADDRESSED ON ADMISSION AND WAS A DNR/DNI AND WITH HER DETERIORATING STATUS THE FAMILY REQUESTED COMFORT MEASURES AND SHE WAS TRANSITIONED INTO INPATIENT HOSPICE WITH [facility] WHERE SHE WAS KEPT COMFORTABLE UNTIL SHE . CODE STATUS: DNR / DNI Home Meds Discontinued Reported Medications Budesonide/Glycopyr/Formoterol (Breztri Aerosphere Inhaler) 160 Mcg-9 Mcg-4.8 Mcg/Actuation Hfa.aer.ad, 2 PUFF IH BID for 30 Days, #10.7 GM 0 Refills 05/15/25 Diltiazem HCl (Diltiazem HCl) 120 Mg Tablet, 120 MG PO BID, TAB 05/15/25 Aspirin (Aspirin EC) 81 Mg Tablet.dr, 81 MG PO DAILY, TAB 05/15/25 Atorvastatin Calcium (Atorvastatin Calcium) 40 Mg Tablet, 40 MG PO DAILY, TAB 05/15/25 Clopidogrel Bisulfate (Clopidogrel) 75 Mg Tablet, 75 MG PO DAILY, TAB 05/15/25 Budesonide/Formoterol Fumarate (Symbicort 160-4.5 Mcg Inhaler) 10.2 Gm Hf a.aer.ad, 2 PUFF IH BID 08/19/18 Discontinued Scripts Tramadol Hcl (Tramadol HCl) 50 Mg Tablet, 50 MG PO Q6HPRN PRN for PAIN LEVEL 6 TO 10, #30 TAB Prov:ANASTACIO RAMIREZ MD 05/16/25 Pantoprazole Sodium (Pantoprazole Sodium) 40 Mg Tablet.dr, 1 TAB PO DAILY for 30 Days, #30 TAB 0 Refills Prov:ANASTACIO RAMIREZ MD 05/16/25 Lactulose (Lactulose) 10 Gram/15 Ml Solution, 30 ML PO BID for constipation, #500 ML 0 Refills Prov:ANASTACIO RAMIREZ MD 05/16/25 Ipratropium/Albuterol Sulfate (Iprat-Albut 0.5-3(2.5) mg/3 ml) 3 Ml Ampul.neb, 3 ML IH [id number], #90 DAYS Prov:ANASTACIO RAMIREZ MD 01/02/23 Levothyroxine Sodium (Levothyroxine Sodium) 25 Mcg Tablet, 25 MCG PO DAILY, #90 TAB Prov:ANASTACIO RAMIREZ MD 01/02/23 Albuterol Sulfate (Proventil Hfa) 6.7 Gm Hfa.aer.ad, 2 PUFF IH Q4PRN PRN for SHORTNESS OF BREATH/WHEEZING, #7 INHALER Prov:ANASTACIO RAMIREZ MD 01/02/23 Linezolid (Zyvox) 600 Mg Tablet, 600 MG PO BID, #20 TAB 1 Refill Prov:ANASTACIO RAMIREZ MD 09/29/23 Levofloxacin (Levofloxacin) 500 Mg Tablet, 500 MG PO DAILY, #10 TAB Prov:ANASTACIO RAMIREZ MD 09/29/23 Prednisone (Prednisone) 10 Mg Tablet, 40 MG PO DAILYBKFST, #50 TAB 0 Refills 4 TABS DAILY X 5 DAYS 3 TABS DAILY X 5 DAYS 2 TABS DALIY X 5 DAYS 1 TAB DAILY X 5 DAYS THEN STOP TAKE WITH FOOD IN AM Prov:ANASTACIO RAMIREZ MD 09/29/23 Pantoprazole Sodium (Pantoprazole Sodium) 40 Mg Granpkt.dr, 40 MG PO BID, #60 PACK 1 Refill Prov:ANASTACIO RAMIREZ MD 09/29/23 Potassium Chloride (Potassium Chloride) 20 Meq Tab.er.prt, 20 MEQ PO BID, #60 TAB 1 Refill Prov:ANASTACIO RAMIREZ MD 09/29/23 Furosemide (Lasix 40Mg Tab) 40 Mg Tablet, 40 MG PO BID, #60 TAB 1 Refill Prov:ANASTACIO RAMIREZ MD 09/29/23 Diltiazem HCl (Diltiazem HCl 30 mg Tab) 30 Mg Tab, 30 MG PO DAILYLUNCH, #90 TAB Prov:ANASTACIO RAMIREZ MD 09/24/23 Diltiazem HCl (Diltiazem 24Hr ER) 180 Mg Cap.er.24h, 180 MG PO BID, #180 CAPSULE.DR Prov:ANASTACIO RAMIREZ MD 09/24/23 Rosuvastatin Calcium (Rosuvastatin Calcium) 5 Mg Tablet, 5 MG PO HS, #90 TAB Prov:ANASTACIO RAMIREZ MD 09/24/23 ANASTACIO RAMIREZ MD May 19, 2025 08:25
== END 2025-05-18 21:37 | DRG 871 ==
LOC: 2BH 15:40
PROVIDERS: ADMIT Internal Medicine; ATTEND Internal Medicine
DX: A41.9 Sepsis, unspecified organism (principal); G93.41 Metabolic encephalopathy; I21.A1 Myocardial infarction type 2; J96.21 Acute and chronic respiratory failure with hypoxia; J96.22 Acute and chronic respiratory failure with hypercapnia; K63.1 Perforation of intestine (nontraumatic); G72.0 Drug-induced myopathy; I13.0 Hypertensive heart and chronic kidney disease with heart failure and stage 1 through stage 4 chronic kidney disease, or unspecified chronic kidney disease; I47.10 Supraventricular tachycardia, unspecified; I50.32 Chronic diastolic (congestive) heart failure; J44.1 Chronic obstructive pulmonary disease with (acute) exacerbation; K56.609 Unspecified intestinal obstruction, unspecified as to partial versus complete obstruction; N17.9 Acute kidney failure, unspecified; Z68.1 Body mass index [BMI] 19.9 or less, adult; E03.9 Hypothyroidism, unspecified; Z66 Do not resuscitate; E88.810 Metabolic syndrome; I25.10 Atherosclerotic heart disease of native coronary artery without angina pectoris; K21.9 Gastro-esophageal reflux disease without esophagitis; M47.816 Spondylosis without myelopathy or radiculopathy, lumbar region; M81.0 Age-related osteoporosis without current pathological fracture; Z96.641 Presence of right artificial hip joint; N18.9 Chronic kidney disease, unspecified; R62.7 Adult failure to thrive; T46.6X5A Adverse effect of antihyperlipidemic and antiarteriosclerotic drugs, initial encounter; Y92.89 Other specified places as the place of occurrence of the external cause; Z79.02 Long term (current) use of antithrombotics/antiplatelets; Z79.51 Long term (current) use of inhaled steroids; Z85.3 Personal history of malignant neoplasm of breast; Z87.891 Personal history of nicotine dependence; Z99.81 Dependence on supplemental oxygen; Z79.899 Other long term (current) drug therapy; Z82.49 Family history of ischemic heart disease and other diseases of the circulatory system; Z79.01 Long term (current) use of anticoagulants
CPT/HCPCS: G0378; J1171; J3360